=== PATIENT | female | born 1945 | race Caucasian/White ===

== ENCOUNTER → 2017-12-08 | Outpatient (CLI) | payer MEDICARE, BC ==
--- NOTE | 2017-12-08 12:41 | ECHOF ---
Referral Reason:I10 Hypertension / R06.02 Shortness of Breath MEASUREMENTS -------- HEIGHT: 160.0 cm WEIGHT: 60.8 kg BP: 160/73 RVIDd: 2.5 cm (< 3.3) IVSd: 0.9 cm (0.6 - 1.1) LVIDd: 3.7 cm (3.9 - 5.3) LVPWd: 0.9 cm (0.6 - 1.1) IVSs: 1.5 cm LVIDs: 2.6 cm LVPWs: 1.2 cm LA Diam: 2.4 cm (2.7 - 3.8) LAESV Index (A-L): 12.02 ml/m Ao Diam: 2.7 cm (2.0 - 3.7) AV Cusp: 1.9 cm (1.5 - 2.6) MV EXCURSION: 16.074 mm (> 18.000) MV EF SLOPE: 82 mm/s (70 - 150) EPSS: 0.4 cm MV E Rolo: 0.78 m/s MV DecT: 226 ms MV A Rolo: 0.97 m/s MV E/A Ratio: 0.81 RAP: 5.00 mmHg RVSP: 27.65 mmHg FINDINGS -------- Sinus rhythm. This was a technically adequate study. The left ventricular size is normal. Left ventricular wall thickness is normal. Overall left vent ricular systolic function is normal with, an EF between 55 - 60 %. The right ventricle is normal in size. Normal LA size by volume 22+/-6 ml/m2. The right atrium is normal in size. There is mild aortic valve sclerosis. Trace to mild aortic regurgitation. Mild mitral annular calcification present. Mild mitral regurgitation is present. Mild tricuspid regurgitation present. Right ventricular systolic pressure is normal at < 35 mmHg. There is no pulmonic regurgitation present. The aortic root size is normal. Normal inferior vena cava with normal inspiratory collapse consistent with estimated right atrial pre ssure of 5 mmHg. There is no pericardial effusion. CONCLUSIONS -------- 1. Sinus rhythm. 2. This was a technically adequate study. 3. The left ventricular size is normal. 4. Left ventricular wall thickness is normal. 5. Overall left ventricular systolic function is normal with, an EF between 55 - 60 %. 6. The right ventricle is normal in size. 7. Normal LA size by volume 22+/-6 ml/m2. 8. The right atrium is normal in size. 9. There is mild aortic valve sclerosis. 10. Trace to mild aortic regurgitation. 11. Mild mitral annular calcification present. 12. Mild mitral regurgitation is present. 13. Mild tricuspid regurgitation present. 14. Right ventricular systolic pressure is normal at < 35 mmHg. 15. There is no pulmonic regurgitation present. 16. The aortic root size is normal. 17. Normal inferior vena cava with normal inspiratory collapse consistent with estimated right atrial pressure of 5 mmHg. 18. There is no pericardial effusion. [place]ARLAND MACHINE OPERATOR: Sarah Perdomo RDCS
== END ==
LOC: RADECHMAIN 11:28
PROVIDERS: ATTEND Internal Medicine
DX: I08.3 Combined rheumatic disorders of mitral, aortic and tricuspid valves (principal); E11.9 Type 2 diabetes mellitus without complications; I10 Essential (primary) hypertension; R06.01 Orthopnea
CPT/HCPCS: 93306

== ENCOUNTER → 2020-02-06 | Outpatient (CLI) | payer MEDICARE, BC | END | disposition home or self-care (01) | LOC: LABWHC1 11:30 | PROVIDERS: ATTEND Internal Medicine | DX: Z03.818 Encounter for observation for suspected exposure to other biological agents ruled out (principal) | CPT/HCPCS: U0003; C9803 ==

== ENCOUNTER → 2020-08-06 | Outpatient (CLI) | payer MEDICARE, BC ==
--- NOTE | 2020-08-06 11:54 | XR ---
EXAMINATION TYPE: XR cervical spine w flex/ext DATE OF EXAM: 08/06/2020 COMPARISON: None HISTORY: Neck pain TECHNIQUE: 5 view cervical spine supplemented with flexion and extension views FINDINGS: Facet changes are evident. There is narrowing of right foramen greater in the lower cervica l spine. Mild narrowing of left foramen are present. Prevertebral space is normal. There is loss of disc height at C6-7. Remaining disc height and the alexa tebral body heights are preserved. Posterior spinal lamellar line is intact. No significant change be tween neutral and extension is evident. There appears to be some normal motion with flexion. The odon toid is limited with overlying occiput. IMPRESSION: 1. Degenerative disc changes C6-7. 2. Limited extension view. 3. Foraminal narrowing diffusely greater on the right.
== END | disposition home or self-care (01) ==
LOC: RADXRMAIN 09:46
PROVIDERS: ATTEND Internal Medicine
DX: M47.812 Spondylosis without myelopathy or radiculopathy, cervical region (principal); M99.71 Connective tissue and disc stenosis of intervertebral foramina of cervical region
CPT/HCPCS: 72052

== ENCOUNTER → 2020-08-11 | Outpatient (CLI) | payer MEDICARE, BC ==
--- NOTE | 2020-08-11 12:41 | MR ---
EXAMINATION TYPE: MR cervical spine wo con DATE OF EXAM: 08/11/2020 COMPARISON: None HISTORY: Neck pain CONTRAST: Performed utilizing 0 mL intravenous Gadavist gadolinium contrast. TECHNIQUE: Multiplanar multiecho imaging on a 3.0 Deja magnet is performed through the cervical spin e. FINDINGS: The craniovertebral junction is normal. Vertebral body alignment is normal. Disc desicca tion is within the cervical spine. Her at T1-T2: There is right paracentral disc bulging. No cord con tact or spinal canal stenosis is present. C7-T1: No focal disc herniation or significant disc bulge is evident. No spinal canal stenosis or n eural foraminal stenosis is present. C6-7: Disc bulge with anterior thecal sac flattening. No cord contact or spinal canal stenosis presen t. Neural foramen are patent.. C5-6: Mild disc bulging is anterior thecal sac flattening. No spinal canal stenosis or neural foramin al stenosis present. No cord contact is present.. C4-5: No focal disc herniation or significant disc bulge is evident. No spinal canal stenosis or humberto ral foraminal stenosis is present. C3-4: No focal disc herniation or significant disc bulge is evident. No spinal canal stenosis or humberto ral foraminal stenosis is present. C2-3: No focal disc herniation or significant disc bulge is evident. No spinal canal stenosis or humberto ral foraminal stenosis is present. IMPRESSIONS: 1. Mild disc bulging C5-6 C6-7 with anterior thecal sac flattening. No cord contact or spinal canal s tenosis is present.
== END | disposition home or self-care (01) ==
LOC: RADMRIMAIN 11:10
PROVIDERS: ATTEND Internal Medicine
DX: M50.022 Cervical disc disorder at C5-C6 level with myelopathy (principal)
CPT/HCPCS: 72141

== ENCOUNTER 2020-10-15 19:44 | Emergency (ER) | payer MEDICARE, BC ==
[2020-10-15 19:57] VITALS: TEMP 98.1
[2020-10-15] MEDS ORDERED: hydrALAZINE HCL 20 MG/ML 1 ML VIAL IVP STA (20:26)
[2020-10-15] MEDS ORDERED: SODIUM CHLORIDE 0.9% 500 ML 500 ML IV ONE (20:26)
--- NOTE | 2020-10-15 20:57 | ED ---
General Adult HPI - General Chief complaint: Recheck/Abnormal Lab/Rx Stated complaint: hypertension Time Seen by Provider: 10/15/20 20:06 Source: patient, family, RN notes reviewed, old records reviewed Mode of arrival: ambulatory - History of Present Illness Initial comments: 75-year-old female with history of hypertension presents with elevated blood pressure throughout the day today. Patient does take losartan, metoprolol, and clonidine 0.1 mg 4 times daily. She had taken an additional dose of clonidine in hopes of low on her blood pressure. Blood pressure readings at home were elevated. She had a vague occipital headache and chest discomfort. No central chest pain. No history of CAD. No focal numbness or weakness. No abdominal pain. No nausea vomiting. She's been eating and drinking well. No fevers. - Related Data Home Medications Medication Instructions Recorded Confirmed Dapagliflozin Propanediol [Farxiga] 10 mg PO DAILY 10/15/20 10/15/20 Ezetimibe [Zetia] 10 mg PO DAILY 10/15/20 10/15/20 Gabapentin [Neurontin] 100 mg PO TID 10/15/20 10/15/20 Losartan Potassium 100 mg PO DAILY 10/15/20 10/15/20 Metoprolol Succinate [Toprol XL] 100 mg PO DAILY 10/15/20 10/15/20 Pioglitazone HCl 30 mg PO DAILY 10/15/20 10/15/20 Simvastatin [Zocor] 20 mg PO HS 10/15/20 10/15/20 cloNIDine HCL [Catapres] 0.1 mg PO QID 10/15/20 10/15/20 metFORMIN HCL [Glucophage] 1,000 mg PO BID 10/15/20 10/15/20 Previous Rx's Medication Instructions Recorded amLODIPine [Norvasc] 5 mg PO DAILY #30 tab 10/15/20 Allergies Allergy/AdvReac Type Severity Reaction Status Date / Time sulfamethoxazole Allergy Unknown Verified 10/15/20 20:53 [From Bactrim] trimethoprim [From Bactrim] Allergy Unknown Verified 10/15/20 20:53 codeine AdvReac Hallucinati Verified 10/15/20 20:53 ons Review of Systems ROS Statement: Those systems with pertinent positive or pertinent negative responses have been documented in the HPI. ROS Other: All systems not noted in ROS Statement are negative. Past Medical History Past Medical History: Diabetes Mellitus, Hypertension, Osteoarthritis (OA) History of Any Multi-Drug Resistant Organisms: None Reported Past Psychological History: No Psychological Hx Reported Smoking Status: Never smoker Past Alcohol Use History: Rare Past Drug Use History: None Reported General Exam General appearance: alert, in no apparent distress Head exam: Present: atraumatic, normocephalic Eye exam: Present: normal appearance, PERRL ENT exam: Present: mucous membranes dry Neck exam: Present: normal inspection. Absent: tenderness, meningismus Respiratory exam: Present: normal lung sounds bilaterally. Absent: respiratory distress, wheezes, rales Cardiovascular Exam: Present: regular rate, normal rhythm GI/Abdominal exam: Present: soft. Absent: distended, tenderness, guarding Extremities exam: Present: normal inspection, normal capillary refill. Absent: pedal edema, calf tenderness Neurological exam: Present: alert, oriented X3, CN II-XII intact. Absent: motor sensory deficit Psychiatric exam: Present: normal affect, normal mood Skin exam: Present: warm, dry, intact. Absent: cyanosis, diaphoretic Course Vital Signs 10/15/20 10/15/20 10/15/20 19:53 19:57 20:57 Temperature 98.1 F Pulse Rate 77 74 77 Respiratory 19 16 16 Rate Blood Pressure 198/85 203/97 197/91 O2 Sat by Pulse 99 99 99 Oximetry 10/15/20 21:57 Temperature Pulse Rate 81 Respiratory 16 Rate Blood Pressure 167/75 O2 Sat by Pulse 100 Oximetry EKG Findings - EKG Comments: EKG Findings:: EKG: Normal sinus rhythm, rate 77, LA interval 160, QRS duration 72, QTC 416, no ST segment elevation Medical Decision Making - Medical Decision Making 75 female presented with elevated blood pressure. She did have some minor vague complaints workup was initiated, EKG sinus rhythm, chest x-ray negative for acute cardiopulmonary disease. Head CT negative for intracranial hemorrhage or mass effect. Normal CBC, normal CMP with exception of a mildly elevated serum creatinine which is at baseline for this patient. Negative troponin. Did discuss case with Dr. Shea who is the patient's primary care physician. Recommends Norvasc 5 mg this prescription will be given to the patient. She is feeling good and eager for discharge. - Lab Data Result diagrams: 10/15/20 20:51 10/15/20 20:51 Lab Results 10/15/20 10/15/20 10/15/20 Range/Units 20:51 20:51 20:51 WBC 6.8 (3.8-10.6) k/uL RBC 3.88 (3.80-5.40) m/uL Hgb 10.7 L (11.4-16.0) gm/dL Hct 33.2 L (34.0-46.0) % MCV 85.4 (80.0-100.0) fL MCH 27.5 (25.0-35.0) pg MCHC 32.2 (31.0-37.0) g/dL RDW 15.7 H (11.5-15.5) % Plt Count 342 (150-450) k/uL MPV 7.4 Neutrophils % 62 % Lymphocytes % 26 % Monocytes % 7 % Eosinophils % 2 % Basophils % 1 % Neutrophils # 4.2 (1.3-7.7) k/uL Lymphocytes # 1.8 (1.0-4.8) k/uL Monocytes # 0.5 (0-1.0) k/uL Eosinophils # 0.1 (0-0.7) k/uL Basophils # 0.0 (0-0.2) k/uL PT 10.3 (9.0-12.0) sec INR 1.0 (<1.2) APTT 21.3 L (22.0-30.0) sec Sodium 136 L (137-145) mmol/L Potassium 4.3 (3.5-5.1) mmol/L Chloride 99 (98-107) mmol/L Carbon Dioxide 25 (22-30) mmol/L Anion Gap 12 mmol/L BUN 22 H (7-17) mg/dL Creatinine 1.26 H (0.52-1.04) mg/dL Est GFR (CKD-EPI)AfAm 47 (>60 ml/min/1.73 sqM) Est GFR (CKD-EPI)NonAf 41 (>60 ml/min/1.73 sqM) Glucose 135 H (74-99) mg/dL Calcium 10.0 (8.4-10.2) mg/dL Magnesium 1.7 (1.6-2.3) mg/dL Total Bilirubin 0.2 (0.2-1.3) mg/dL AST 27 (14-36) U/L ALT 14 (4-34) U/L Alkaline Phosphatase 67 (38-126) U/L Troponin I (0.000-0.034) ng/mL Total Protein 6.9 (6.3-8.2) g/dL Albumin 4.5 (3.5-5.0) g/dL 10/15/20 Range/Units 20:51 WBC (3.8-10.6) k/uL RBC (3.80-5.40) m/uL Hgb (11.4-16.0) gm/dL Hct (34.0-46.0) % MCV (80.0-100.0) fL MCH (25.0-35.0) pg MCHC (31.0-37.0) g/dL RDW (11.5-15.5) % Plt Count (150-450) k/uL MPV Neutrophils % % Lymphocytes % % Monocytes % % Eosinophils % % Basophils % % Neutrophils # (1.3-7.7) k/uL Lymphocytes # (1.0-4.8) k/uL Monocytes # (0-1.0) k/uL Eosinophils # (0-0.7) k/uL Basophils # (0-0.2) k/uL PT (9.0-12.0) sec INR (<1.2) APTT (22.0-30.0) sec Sodium (137-145) mmol/L Potassium (3.5-5.1) mmol/L Chloride (98-107) mmol/L Carbon Dioxide (22-30) mmol/L Anion Gap mmol/L BUN (7-17) mg/dL Creatinine (0.52-1.04) mg/dL Est GFR (CKD-EPI)AfAm (>60 ml/min/1.73 sqM) Est GFR (CKD-EPI)NonAf (>60 ml/min/1.73 sqM) Glucose (74-99) mg/dL Calcium (8.4-10.2) mg/dL Magnesium (1.6-2.3) mg/dL Total Bilirubin (0.2-1.3) mg/dL AST (14-36) U/L ALT (4-34) U/L Alkaline Phosphatase (38-126) U/L Troponin I <0.012 (0.000-0.034) ng/mL Total Protein (6.3-8.2) g/dL Albumin (3.5-5.0) g/dL Disposition Clinical Impression: Hypertension Disposition: HOME SELF-CARE Condition: Good Instructions (If sedation given, give patient instructions): Chronic Hypertension (ED) Prescriptions: amLODIPine [Norvasc] 5 mg PO DAILY #30 tab Is patient prescribed a controlled substance at d/c from ED?: No Referrals: Niyah Shea MD [Primary Care Provider] - 1-2 days Time of Disposition: 22:35
[2020-10-15 21:06] LABS: HCT 33.2 % (34.0-46.0); HGB 10.7 gm/dL (11.4-16.0); MCH 27.5 pg (25.0-35.0); MCHC 32.2 g/dL (31.0-37.0); MCV 85.4 fL (80.0-100.0); RBC 3.88 m/uL (3.80-5.40); RDW 15.7 % (11.5-15.5); WBC 6.8 k/uL (3.8-10.6)
[2020-10-15 21:07] LABS: Basophils % (A) 1 %; Eosinophils # (A) 0.1 k/uL (0-0.7); Eosinophils % (A) 2 %; Lymphocytes # (A) 1.8 k/uL (1.0-4.8); Lymphocytes % (A) 26 %; Mean Platelet Volume 7.4; Monocytes # (A) 0.5 k/uL (0-1.0); Monocytes % (A) 7 %; Neutrophils # (A) 4.2 k/uL (1.3-7.7); Neutrophils % (A) 62 %; Platelet Count 342 k/uL (150-450)
[2020-10-15] MEDS ORDERED: LORazepam 2 MG/ML INJ IV STA (21:17)
[2020-10-15 21:26] LABS: Partial Thromboplastin Time 21.3 sec (22.0-30.0); Prothrombin Time 10.3 sec (9.0-12.0)
[2020-10-15 21:50] LABS: Albumin 4.5 g/dL (3.5-5.0); Magnesium 1.7 mg/dL (1.6-2.3); Potassium 4.3 mmol/L (3.5-5.1); Total Bilirubin 0.2 mg/dL (0.2-1.3); Total Protein 6.9 g/dL (6.3-8.2)
--- NOTE | 2020-10-15 22:10 | XR ---
EXAMINATION TYPE: XR chest 2V DATE OF EXAM: 10/15/2020 COMPARISON: 02/14/2013 HISTORY: Chest pain TECHNIQUE: FINDINGS: There is no heart failure nor confluent pneumonic infiltrate. Costophrenic angles are clear . There are chest leads. There are no hilar masses. There is mild spurring in the thoracic spine. IMPRESSION: No active cardiopulmonary disease. There is clearing of the left lower lobe pneumonia com pared to old exam. Minimal pulmonary fibrotic changes noted.
--- NOTE | 2020-10-15 22:11 | CT ---
EXAMINATION TYPE: CT brain wo con DATE OF EXAM: 10/15/2020 COMPARISON: None HISTORY: Hypertension and headache. CT DLP: 1188.4 mGycm Automated exposure control for dose reduction was used. There is cerebral cortical atrophy. There is no mass effect nor midline shift. There is no sign of in tracranial hemorrhage. Calvarium is intact. There is normal aeration of the mastoid sinuses. Skull ba se is intact. IMPRESSION: No acute abnormality. Cerebral atrophy.
[2020-10-15 22:23] VITALS: RESP 16
[2020-10-15 22:24] VITALS: BP 167/75; PULSE 81
== END 2020-10-15 22:49 | disposition home or self-care (01) ==
LOC: EC 19:44
DX: I10 Essential (primary) hypertension (principal); E11.9 Type 2 diabetes mellitus without complications; Z79.84 Long term (current) use of oral hypoglycemic drugs; Z79.899 Other long term (current) drug therapy
CPT/HCPCS: 36415; 80053; 83735; 84484; 85025; 85610; 85730; 71046; 70450; 99285; 96374; 96375; 96361; J2060; J0360

== ENCOUNTER → 2020-10-27 | Outpatient (CLI) | payer MEDICARE, BC ==
--- NOTE | 2020-10-27 15:37 | BD ---
EXAMINATION TYPE: Axial Bone Density DATE OF EXAM: 10/27/2020 COMPARISON: NONE CLINICAL HISTORY: Height: 5 FT 3 IN Weight: 122 FRAX RISK QUESTIONS: Alcohol (3 or more units per day): NO Family History (Parent hip fracture): NO Glucocorticoids (More than 3mos): NO (Ex: prednisone, prednisolone, methylprednisolone, dexamethasone, and hydrocortisone). History of Fracture in Adulthood: NO Secondary Osteoporosis: 1. Type 1 Diabetes: NO 2. Hyperthyroidism: NO 3. Menopause before 45: NO 4. Malnutrition: NO 5. Chronic liver disease: NO Rheumatoid Arthritis: YES Current Tobacco Use: NO RISK FACTORS HISTORY OF: Surgery to Spine/Hip(right/left)/Wrist (right/left): NO Family History of Osteoporosis: NO Active: NO Diet low in dairy products/other sources of calcium: NO Postmenopausal woman: UNSURE Take estrogen and/or progesterone medications: VERY SHORT TIME Lost more than 2 inches in height since high school: NO Frequent falls: USES CANE AT HOME MEDICATIONS: Additional Medications: CLONIDINE, GABAPENTIN, METFORMIN, LOSARTAN, PIOGLITAZONE, FAXIGA ,EZETIMIBE,M ETOPROLOL, SIMVASTATIN, OMEPRAZOLE, MAGNESIUM, POTASSIUM, AMLODIPINE, MIRTAZAPINE , Additional History: EXAM MEASUREMENTS: Bone mineral densitometry was performed using the Zuki System. Bone mineral density as measured about the Lumbar spine is: ----- L1-L4(G/cm2): 1.022 T Score Values are as follows: ----- L2: -1.4 ----- L3: -0.7 ----- L4: -1.9 ----- L1-L4: -1.3 Bone mineral density has: INCREASED 3.6 % since study of: 2003 Bone mineral density about the R hip (g/cm2): 0.763 Bone mineral density about the L hip (g/cm2): 0.779 T Score values are as follows: -----R Neck: -2.0 -----L Neck: -1.9 -----R Total: -1.5 -----L Total: -1.6 Bone mineral density has: DECREASED -11.2 % since study of: 2003 IMPRESSION: Osteopenia NOTE: T-SCORE=SD OF THE YOUNG ADULT MEAN.
--- NOTE | 2020-10-28 13:57 | MM ---
Reason for exam: screening (asymptomatic). Last mammogram was performed 5 years and 8 months ago. History: Patient is postmenopausal and has history of endometrial cancer at age 60. Family history of premenopausal breast cancer in mother at age 50. Took hormonal contraceptives for 2 years beginning at age 18. Physical Findings: A clinical breast exam by your physician is recommended on an annual basis and results should be correlated with mammographic findings. MG 3D Screening Mammo W/Cad Bilateral CC and MLO view(s) were taken. Prior study comparison: March 12, 2015, bilateral MG 3d diag mammo w/cad FLAQUITA. The breast tissue is heterogeneously dense. This may lower the sensitivity of mammography. There are benign appearing diffuse vascular calcifications bilaterally. No significant changes when compared with prior studies. ASSESSMENT: Benign, BI-RAD 2 RECOMMENDATION: Routine screening mammogram of both breasts in 1 year.
== END | disposition home or self-care (01) ==
LOC: RADMAMWWP 11:57
PROVIDERS: ATTEND Internal Medicine
DX: Z12.31 Encounter for screening mammogram for malignant neoplasm of breast (principal); Z13.820 Encounter for screening for osteoporosis; M85.89 Other specified disorders of bone density and structure, multiple sites; Z78.0 Asymptomatic menopausal state; Z80.3 Family history of malignant neoplasm of breast
CPT/HCPCS: 77063; 77067; 77080

== ENCOUNTER → 2020-11-03 | Outpatient (CLI) | payer MEDICARE, BC | END | disposition home or self-care (01) | LOC: RADNMMAIN 08:07 | PROVIDERS: ATTEND Internal Medicine | DX: Z53.9 Procedure and treatment not carried out, unspecified reason (principal) ==

== ENCOUNTER → 2021-01-15 | Outpatient (CLI) | payer MEDICARE, BC ==
[~2021-01-15] MED LIST: REGADENOSON 0.4 MG/5 ML SYRINGE IV PRN
--- NOTE | 2021-01-15 12:42 | P.STRESS ---
- Stress Test Note Stress Test Results/Findings: Exam Performed: NM stress lexiscan cardiolite Exam Date: 01/15/21 Reason for Exam: CHEST PAIN Height: 5 ft 2 in Weight: 54.5 kg Protocol: LEXISCAN Stage: NA Duration of Exercise: 5 MINUTES Resting Heart Rate: 66 Resting Blood Pressure: 131/57 Maximum Achieved Heart Rate: 90 Maximum Achieved Blood Pressure: 163/61 85% PMHR: 121 100% PMHR: 142 METS: NA Technologist Comment: Stress Test Results/Findings: Baseline heart rate 66 beats a minute, Baseline blood pressure 131/57 mmHg Baseline 12-lead EKG shows sinus rhythm with a nonspecific ST segment abnormalities in the lateral precordial leads with RV PVCs Patient received Lexiscan infusion per protocol No symptoms No ECG abnormalities noted PVCs continued throughout the infusion. Nuclear portion will be reported separately
--- NOTE | 2021-01-15 14:22 | NM ---
EXAMINATION TYPE: NM stress lexiscan cardiolite DATE OF EXAM: 01/15/2021 COMPARISON: NONE HISTORY: R00.1 bradycardia TECHNIQUE: After the intravenous administration of 9 mCi Tc 99m Sestamibi - Cardiolite resting SPECT images acquired 45 minutes post injection. The patient received 0.4mg Lexiscan, 25 mCi Tc 99m Sestamibi - Stress images obtained 30 minutes post injection FINDINGS: Review of stress and rest SPECT images demonstrates no distinct perfusion abnormality. Gated analysi s shows normal wall motion with an estimated left ventricular ejection fraction of 92 %. IMPRESSION: No scintigraphic evidence for reversible ischemia.
== END | disposition home or self-care (01) ==
LOC: RADNMMAIN 08:48
PROVIDERS: ATTEND Internal Medicine
DX: R00.1 Bradycardia, unspecified (principal)
CPT/HCPCS: 93017; 78452; A9500; J2785

== ENCOUNTER → 2021-07-13 | Outpatient (CLI) | payer MEDICARE, BC ==
[2021-07-13 17:34] LABS: INR 0.9 (<1.2); Partial Thromboplastin Time 23.8 sec (22.0-30.0); Prothrombin Time 10.1 sec (9.0-12.0)
[2021-07-13 18:29] LABS: Appearance,Urine Clear (Clear); Bilirubin,Urine Negative (Negative); Blood,Urine Negative (Negative); Color,Urine Light Yellow; Glucose,Urine (UA) 3+ (Negative); Ketones,Urine Negative (Negative); Leukocyte Esterase,Urine Negative (Negative); Nitrite,Urine Negative (Negative); PH, Urine 6.5 (5.0-8.0); Protein,Urine Negative (Negative); Specific Gravity,Urine 1.005 (1.001-1.035); Urobilinogen,Urine <2.0 mg/dL (<2.0)
[2021-07-13 23:40] LABS: African American GFR (CKD) 38.3 (60.0-200.0); Albumin 4.6 g/dL (3.8-4.9); Albumin/Globulin Ratio 1.92 (1.60-3.17); Anion Gap 14.3 mmol/L (10.00-18.00); BUN/Creat Ratio 20.87 Ratio (12.00-20.00); Blood Urea Nitrogen 31.3 mg/dL (9.0-27.0); Calcium 9.9 mg/dL (8.7-10.3); Carbon Dioxide 23.7 mmol/L (20.0-27.5); Globulin 2.4 g/dL (1.6-3.3); Potassium 4.5 mmol/L (3.5-5.5); Total Bilirubin 0.2 mg/dL (0.30-1.20)
[2021-07-14 00:02] LABS: HCT 35.5 % (37.2-46.3); HGB 11.1 g/dL (12.0-15.0); MCH 26.7 pg (27.0-32.0); MCHC 31.3 g/dL (32.0-37.0); MCV 85.3 fL (80.0-97.0); Mean Platelet Volume 11.5 fL (9.5-12.2); NRBC Per 100 WBC 0 /100 WBCS (0.0-0.0); Platelet Count 336 X 10*3/uL (140-440); RBC 4.16 X 10*6/uL (4.10-5.20); RDW 19.2 % (11.5-14.5); WBC 5.39 X 10*3/uL (4.50-10.00)
== END | disposition home or self-care (01) ==
LOC: LABWHC1 16:18
PROVIDERS: ATTEND Orthopaedic Surgery
DX: Z01.812 Encounter for preprocedural laboratory examination (principal); M16.12 Unilateral primary osteoarthritis, left hip
CPT/HCPCS: 36415; 80053; 81003; 85027; 85610; 85730; 87070

== ENCOUNTER 2021-07-27 12:34 | Day surgery (SDC) | payer MEDICARE, BC ==
[2021-07-23 15:01] VITALS: BMI 23.9
[~2021-07-27 12:34] MED LIST changes: +ACETAMINOPHEN TAB 500 MG TAB PO PRN; +GABAPENTIN 300 MG CAP PO PRN; +HYDROcodone/APAP 7.5-325MG 1 EACH TAB PO PRN; +HYDROmorphone 0.5 MG/0.5 ML SYRINGE IVP PRN; +LIDOCAINE 1% (10MG/ML) FOR IV START INTRADERMA PRN; +MAGNESIUM HYDROXIDE 2,400 MG/10 ML CUP PO PRN; +MELOXICAM 7.5 MG TAB PO PRN; +NALOXONE 0.4 MG/ML 1 ML VIAL IV PRN; +ONDANSETRON 4 MG/2 ML VIAL IVP ONE; +ONDANSETRON 4 MG/2 ML VIAL IVP PRN; -REGADENOSON 0.4 MG/5 ML SYRINGE IV PRN; +TRANEXAMIC ACID IN NACL,ISO-OS 1,000 MG in SALINE 1 100ML.BAG IVPB PRN
[2021-07-27] MEDS: LACTATED RINGERS 1,000 ML IV SCH (13:08)
[2021-07-27 13:22] LABS: Glucose,Whole Blood 94 mg/dL (75-99)
[2021-07-27] MEDS ORDERED: DEXAMETHASONE SOD PHOSPHATE 4 MG/ML 1 ML VIAL IVP ONE (13:29)
[2021-07-27] MEDS ORDERED: TRANEXAMIC ACID IN NACL,ISO-OS 1,000 MG/100 ML BAG ONE (14:12)
[2021-07-27] MEDS ORDERED: fentaNYL (PF) 50 MCG/ML 2 ML AMP ONE (14:12)
[2021-07-27] MEDS ORDERED: MIDAZOLAM 2 MG/2 ML VIAL ONE (14:12)
[2021-07-27] MEDS ORDERED: PROPOFOL 10 MG/ML 20 ML VIAL IV ONE (14:12)
[2021-07-27] MEDS ORDERED: PHENYLEPHRINE-0.9% NACL SYG 1,000 MCG/10 ML SYRINGE ONE (14:12)
[2021-07-27] MEDS ORDERED: ROPIVACAINE 5 MG/ML 30 ML VIAL MISCELLANE ONE (14:23)
[2021-07-27] MEDS ORDERED: ceFAZolin 1,000 MG in SODIUM CHLORIDE 0.9% 1,000 ML IRRIGATION ONE (14:23)
[2021-07-27] MEDS ORDERED: BUPIVACAINE (PF) 0.25% 30 ML VIAL SQ ONE (14:57)
--- NOTE | 2021-07-27 15:38 | P.OP ---
Date of Procedure: 07/27/21 Preoperative Diagnosis: Severe osteoarthritis left hip Postoperative Diagnosis: Severe osteoarthritis left hip Procedure(s) Performed: Left total hip arthroplasty with a direct anterior approach Implants: [employer] Polarstem standard size 1 [employer] R3, 3 hole hemispherical acetabular shell, 50 mm [employer] Reflection 6.5 mm cancellus screw, 20 mm 2 [employer] R3, XLPE 20 acetabular liner [employer] Oxinium femoral head 32 m, +4 All components were press-fit. The articulation is Oxinium on polyethylene. Anesthesia: spinal Surgeon: Andre Lerner Alumni Relations Officer #1: Tiff Hernandez Estimated Blood Loss (ml): 250 Pathology: other (Femoral head) Condition: stable Disposition: PACU Indications for Procedure: After failure of conservative treatment we discussed the surgical and nonsurgical treatment options at length. Patient wishes to proceed with a total hip arthroplasty with a direct anterior approach. Complications specific to this procedure were discussed at length, including but not limited to infection, leg length discrepancy, dislocation, nerve injury, and fracture. Covid-19 was also discussed at length with the patient, and they are aware of the current policies and procedures. The patient was given the option of delaying surgery, but they elect to proceed knowing these risks. Patient is aware of all these complications and informed consent was obtained Operative Findings: The operative findings are consistent with severe osteoarthritis of the left hip Description of Procedure: Patient was seen and evaluated in the preoperative area and the consent was reviewed. The operative site was marked with a skin marker. The patient was then brought to the operating room and given preoperative antibiotics in travenously. 1 g of Tranexamic acid was also given intravenously. A spinal anesthetic was administered by the anesthesia department. The patient was then placed on the [place] table with the bony prominences well-padded. The hip area was then prepped with a ChloraPrep solution and draped in the usual sterile fashion. A universal timeout was then performed, which confirmed the patient's name, galarza rgical site, ALLERGIES, and procedure being performed on the consent. Next the incision site was located at 1 cm distal and 2 cm lateral to the anterior superior iliac spine. The skin and subcutaneous tissues were sharply incised. Incision was carefully dissected down to the fascia overlying the tensor fascia mercedes muscle. This fascia was then incised in line with the incision. Care was taken to stay laterally in order to avoid injuring the lateral femoral cutaneous nerve. Next, using blunt finger dissection, the tensor fascia mercedes muscle was dissected off its investing fascia. The muscle was then carefully retracted laterally with a cobra retractor over the lateral neck of the femur. Next, the circumflex vessels were identified and cauterized using the AquaMantis device. The anterior hip capsule was then exposed. The capsule was then opened and an inverted T fashion. Cobra retractors were then placed intracapsularly. The retractors were maintained intracapsular throughout the procedure. The proximal femur was then visualized. Fluoroscopic x-rays were then taken in order to evaluate the preoperative leg lengths. A small amount of traction was placed on the leg. The femoral neck was then osteotomized at the appropriate level above the lesser trochanter. A small wedge of bone was then removed from the remaining femoral head. Next, using a corkscrew the femoral head was removed from the acetabulum. On gross visual inspection, the femoral head had complete loss of articular cartilage and multiple periarticular osteophytes. The femoral head was then measured. Attention was then turned to the acetabulum. The acetabulum was exposed and any remaining labrum was excised. Sequential reaming of the acetabulum was performed using fluoroscopic guidance until there was a good bed of bleeding cancellus bone. When the appropriate size was reached, a trial was then placed. The position and fit of the trial was checked with fluoroscopy. The trial was then removed. Then, using fluoroscopic guidance, the final implant was impacted at 20 of anteversion and 40 of abduction, and fully seated in the acetabulum. 2 screws were then placed in the acetabulum. Again fluoroscopy was used to check position of the screws. Next, the liner was then impacted, with a 20 elevated liner located in the anterior superior quadrant. Component locking was confirmed. Attention was then directed to the femur. With the aid of the [place] table, the femur was externally rotated to approximately 130, extended, and adducted under the opposite leg. A side hook was then placed under the proximal femur, and the side hook elevator was used to elevate the proximal femur while releasing the capsule. Retractors were then placed. A capsular release was performed, as well as a release of the conjoined tendon, which afforded excellent visualization of the proximal femur. Next, a box osteotome was used to lateralize the proximal femur. A hand screen printer was then used to locate the femoral canal. Sequential broaching was then performed with appropriate size which afforded excellent fixation in the proximal femur. A trial was then placed with appropriate head and neck, and the hip was gently reduced with the aid of the [place] table. Fluoroscopy was then used to check position of the components, as well as to ensure equal leg lengths. The hip was then gently dislocated and the trials were then removed. Final implants were then impacted and the hip was again reduced. Final fluoroscopic x-rays confirmed that the components were in anatomic position, as well as equal leg lengths. The hip was also taken through range of motion, and found to be stable. The hip was then copiously irrigated with antibiotic solution with pulsatile lavage. The hip was then irrigated with Irrisept solution. The soft tissues were then injected with a ropivacaine solution. A second dose of 1 g of Tranexamic acid was also given intravenously. The fascia was then closed with 2-0 strata fix suture. The subcutaneous tissue was closed with 3-0 Vicryl. The subcuticular tissue was closed with 3-0 strata fix suture. The skin was then closed with Exofin skin glue. After the glue and dried, and Optifoam silver impregnated dressing was applied. The patient was then transferred to the recovery room in stable condition. The assistant portfolio manager MARLEEN Montanez was required due to the complexity of surgery, and the need for skilled ophthalmic medical assistant for positioning, draping, exposure, retraction, and closure of the wound.
--- NOTE | 2021-07-27 15:54 | XR ---
EXAMINATION TYPE: XR Hip Limited LT, FL guidance operating room DATE OF EXAM: 07/27/2021 CLINICAL HISTORY: Left hip pain and osteoarthritis. TECHNIQUE: Fluoroscopy. Intraoperative limited views left hip. COMPARISON: None. FINDINGS: Fluoroscopic guidance was provided during left hip replacement procedure performed by Dr. Lerner. A total of 52 seconds of fluoroscopic time was utilized during the procedure and 4 spot in traoperative images are acquired. Intraoperative images obtained show advanced degenerative change left hip joint with subsequent repla cement with metallic prosthesis. Metallic hardware is satisfactory in position on frontal intraoperat norman projection after replacement. IMPRESSION: As Above.
--- NOTE | 2021-07-27 16:45 | XR ---
EXAMINATION TYPE: XR Hip Limited LT DATE OF EXAM: 07/27/2021 COMPARISON: X-ray performed earlier same day INDICATION: Postoperative TECHNIQUE: One view of the left hip FINDINGS: Status post left total hip arthroplasty. No gross hardware complication with good alignment. Acute po stsurgical changes with surrounding soft tissue swelling and gas. IMPRESSION: As above.
[2021-07-27 16:53] LABS: Glucose,Whole Blood 102 mg/dL (75-99)
[2021-07-27] MEDS: SODIUM CHLORIDE 0.9% 1,000 ML IV SCH (17:44)
[2021-07-27] MEDS: GABAPENTIN 100 MG CAP PO SCH (19:56)
[2021-07-27] MEDS: ASPIRIN 81 MG PO SCH (19:56)
[2021-07-27] MEDS: CYCLOBENZAPRINE 5 MG TAB PO SCH (19:56)
[2021-07-27] MEDS: cloNIDine HCL 0.1 MG TAB PO SCH ×2 (19:57→23:03)
[2021-07-27] MEDS: HYDROcodone/APAP 7.5-325MG 1 EACH TAB PO PRN (19:57)
[2021-07-27 20:44] LABS: Glucose,Whole Blood 118 mg/dL (75-99)
[2021-07-27] MEDS ORDERED: MIRTAZAPINE 15 MG TAB PO SCH (21:00)
[2021-07-27] MEDS ORDERED: SENNOSIDES-DOCUSATE SODIUM 1 EACH TAB PO SCH (21:00)
[2021-07-28] MEDS: HYDROcodone/APAP 7.5-325MG 1 EACH TAB PO PRN ×2 (01:58→07:47)
[2021-07-28] MEDS: SODIUM CHLORIDE 0.9% 1,000 ML IV SCH (03:23)
[2021-07-28 06:47] LABS: Glucose,Whole Blood 151 mg/dL (75-99)
[2021-07-28] MEDS: LACTATED RINGERS 1,000 ML IV SCH (07:44)
[2021-07-28 07:46] VITALS: BP 147/69; PULSE 105; RESP 18; TEMP 98.1
[2021-07-28] MEDS: CYCLOBENZAPRINE 5 MG TAB PO SCH (07:46)
[2021-07-28] MEDS: ASPIRIN 81 MG PO SCH (07:47)
[2021-07-28] MEDS: cloNIDine HCL 0.1 MG TAB PO SCH (07:47)
[2021-07-28] MEDS: GABAPENTIN 100 MG CAP PO SCH (07:47)
--- NOTE | 2021-07-28 07:49 | P.DS ---
Providers Expected date of discharge: 07/28/21 Attending physician: Andre Lerner Consults: 07/27/21 10:50 Consult Physician Routine Consulting Provider: Niyah Shea Consult Reason/Comments: medical management Do you want consulting provider notified?: Yes Primary care physician: Niyah Shea - Discharge Diagnosis(es) (1) Primary localized osteoarthritis of left hip Current Visit: Yes Status: Acute (2) Status post total hip replacement, left Current Visit: Yes Status: Acute Hospital Course: This is a 76-year-old female with known history of degenerative arthritis of the left hip. The patient presents for evaluation. After discussion and con sideration patient elects to proceed with total hip arthroplasty with direct anterior approach. The patient is seen preoperatively by primary care physician and cleared for surgery. Patient is admitted to [facility] on 07/27/2021 for total hip arthroplasty with direct anterior approach. The procedure is performed without complication or sequelae. The patient is doing well postoperatively. Labs and vital signs are stable on day of discharge. On day of discharge patient's hip incision is healing well. There is minimal erythema. There is no drainage noted at this time. There is minimal soft tissue swelling to the hip and thigh. Patient has full foot and ankle motion without difficulty or pain. Neurovascular status to the lower extremity is intact. Patient is discharged to home in good condition. Please see med rec for accurate list of home medications. Plan - Discharge Summary Discharge Rx Participant: Yes New Discharge Prescriptions: New Aspirin [Adult Low Dose Aspirin EC] 81 mg PO BID 30 Days #60 tab HYDROcodone/APAP 7.5-325MG [[place] 7.5-325] 1 - 2 tab PO Q6H PRN #32 tab PRN Reason: Pain Sennosides [Senokot] 2 tab PO DAILY PRN #60 tablet PRN Reason: Constipation Ondansetron Odt [Zofran Odt] 1 tab PO Q8HR PRN #10 tab PRN Reason: Nausea No Action Losartan Potassium 100 mg PO DAILY Dapagliflozin Propanediol [Farxiga] 10 mg PO DAILY amLODIPine [Norvasc] 5 mg PO DAILY #30 tab Cyclobenzaprine [Flexeril] 5 mg PO BID Alendronate Sodium 70 mg PO WEEKLY Multivitamins, Thera [Multivitamin (formulary)] 1 tab PO DAILY Mirtazapine 7.5 mg PO HS Cannabidiol (Cbd) [Epidiolex] 1 dose PO HS PRN PRN Reason: Pain Pioglitazone HCl 30 mg PO DAILY Metoprolol Succinate [Toprol XL] 150 mg PO DAILY cloNIDine HCL [Catapres] 0.1 mg PO QID Gabapentin [Neurontin] 100 mg PO TID Ezetimibe [Zetia] 10 mg PO DAILY Simvastatin [Zocor] 10 mg PO DAILY Semaglutide [Rybelsus] 7 mg PO DAILY Zinc (Unknown Dose) 1 tab PO DAILY Vitamin D 3 (Unknown Dose) 1 cap PO DAILY Calcium (Unknown Dose) 1 tab PO DAILY Discharge Medication List Dapagliflozin Propanediol [Farxiga] 10 mg PO DAILY 10/15/20 [History] Ezetimibe [Zetia] 10 mg PO DAILY 10/15/20 [History] Gabapentin [Neurontin] 100 mg PO TID 10/15/20 [History] Losartan Potassium 100 mg PO DAILY 10/15/20 [History] Metoprolol Succinate [Toprol XL] 150 mg PO DAILY 10/15/20 [History] Pioglitazone HCl 30 mg PO DAILY 10/15/20 [History] Simvastatin [Zocor] 10 mg PO DAILY 10/15/20 [History] amLODIPine [Norvasc] 5 mg PO DAILY #30 tab 10/15/20 [Rx] cloNIDine HCL [Catapres] 0.1 mg PO QID 10/15/20 [History] Alendronate Sodium 70 mg PO WEEKLY 07/23/21 [History] Calcium (Unknown Dose) 1 tab PO DAILY 07/23/21 [History] Cannabidiol (Cbd) [Epidiolex] 1 dose PO HS PRN 07/23/21 [History] Cyclobenzaprine [Flexeril] 5 mg PO BID 07/23/21 [History] Mirtazapine 7.5 mg PO HS 07/23/21 [History] Multivitamins, Thera [Multivitamin (formulary)] 1 tab PO DAILY 07/23/21 [History] Semaglutide [Rybelsus] 7 mg PO DAILY 07/23/21 [History] Vitamin D 3 (Unknown Dose) 1 cap PO DAILY 07/23/21 [History] Zinc (Unknown Dose) 1 tab PO DAILY 07/23/21 [History] Aspirin [Adult Low Dose Aspirin EC] 81 mg PO BID 30 Days #60 tab 07/27/21 [Rx] HYDROcodone/APAP 7.5-325MG [[place] 7.5-325] 1 - 2 tab PO Q6H PRN #32 tab 07/27/21 [Rx] Ondansetron Odt [Zofran Odt] 1 tab PO Q8HR PRN #10 tab 07/27/21 [Rx] Sennosides [Senokot] 2 tab PO DAILY PRN #60 tablet 07/27/21 [Rx] Follow up Appointment(s)/Referral(s): Andre Lerner DO [Doctor of Osteopathic Medicine] - 2 Weeks Activity/Diet/Wound Care/Special Instructions: Weightbearing as tolerated with walker. Leave dressing intact. Dressing may be removed by home care nurse or by patient in 7 days. Then change dressing twice daily until follow up. May shower with initial dressing intact and after removal. If dressing become saturated, please remove. Please take aspirin 81mg twice daily for 30 days to prevent blood clots. Recommend use of compression stockings daily until follow up to help prevent swelling and blood clots. May remove at night before sleeping. Please follow-up with [facility] in 2 weeks and call with any questions or concerns, . Discharge Disposition: HOME WITH HOME HEALTH SERVICES
--- NOTE | 2021-07-28 08:25 | P.PN ---
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 Patient was brought in the hospital under the care of Dr. Andre Lerner status post left total hip arthroplasty with direct anterior approach, postop day 0. She was on simple mask for short period and now on room air pulse oxing 96%. She denies any lightheadedness or dizziness. Medication reconciliation reviewed. 07/28: Patient is up in the bathroom this morning and plan for physical therapy today. is at bedside. Pain is controlled. No nausea or vomiting. She denies having chest pain or shortness of breath, no lightheadedness or dizziness. Orthopedics has evaluated the patient this morning up repair for discharge home today. Medication reconciliation has been completed for home. REVIEW OF SYSTEMS: Constitutional: No documented fever, no chills, no night sweats. No weight change. No weakness, fatigue or lethargy. No daytime sleepiness. EENT: No headache. No blurred vision or double vision, no loss of vision. No loss of Hearing, no ringing in the ears, no dizziness. No nasal drainage or congestion. No epistaxis. No sore throat. Lungs: No shortness of breath, no cough, no sputum production. No wheezing. Reports dyspnea with activity. Cardiovascular: No chest pain, no lower extremity edema. No palpitations. No paroxysmal nocturnal dyspnea. No orthopnea. No lightheadedness or dizziness. No syncopal episodes. Abdominal: Denies abdominal pain. No nausea, vomiting. No diarrhea. No constipation. No bloody or tarry stools reports loss of appetite. Genitourinary: No dysuria, increased frequency, urgency. No urinary retention. Musculoskeletal: No myalgias. No muscle weakness, no gait dysfunction, no frequent falls. No back pain. No neck pain. Integumentary: No wounds, no lesions. No rash or pruritus. No unusual bruising. No change in hair or nails. Neurologic: No aphasia. No facial droop. No change in mentation. No head injury. No headache. No paralysis. No paresthesia. Psychiatric: No depression. No anxiety. No mood swings. Endocrine: No abnormal blood sugars. . PHYSICAL EXAMINATION: General: This is a 76-year-old female and appears to be comfortable, no acute distress noted. No respiratory distress. HEENT: Head is atraumatic, normocephalic, pupils were equal round reactive to light and recommendation, extraocular muscle movement were intact, sclera nonicteric, conjunctivae were pale, mucous membranes of the mouth are somewhat dry. Neck: Supple, no JVP, normal carotid upstroke bilaterally, no lymphadenopathy. Chest: Decreased breath sounds at the bases, few rhonchi, no extremity wheezes, no chest wall tenderness, no intercostal retractions. Heart: First heart sound is normal, second heart sounds normal, there is a 2/6 systolic ejection murmur at the left sternal border, no S3 or S4. Abdomen: Soft, nontender, nondistended, positive bowel sounds. Extremities: There is no edema no calf tenderness DP +[address] to the right hip. Neurologic examination: Patient is awake alert and oriented ?-3, cranial nerves II-12 appear grossly intact, muscle power were 5 out of 5 in upper extremities and 5 out of 5 in bilateral lower extremities, deep tendon reflexes normal bilaterally. ASSESSMENT AND PLAN: 1. Osteoarthritis status post left total hip arthroplasty, direct anterior approach, postop day 1. Patient has been admitted to the [facility] floor, continue current pain management with [place] 7.5 mg 1-2 tablets every 6 hours, aspirin 81 mg twice daily for DVT prophylaxis, continue patient on incentive spirometry to reduce incidence of atelectasis and hospital-acquired pneumonia. 2. Hypertension. Continue patient on amlodipine 5 mg daily, clonidine 0.1 mg 4 times daily, losartan 100 mg daily, Toprol-XL 150 mg daily. 3. Hyperlipidemia. Continue simvastatin 10 mg oral daily, ezetimibe 10 mg daily. 4. Diabetes mellitus type 2. Continue patient on Rybelsus 7 mg oral daily, Actos 30 mg oral daily, Farxiga 10 mg oral daily. 5. Gastroesophageal reflux disease. 6. Spondylosis of the lumbar spine with myelopathy. Continue gabapentin 100 mg 3 times daily, Flexeril 5 mg twice daily. 7. DVT prophylaxis. Aspirin 81 mg twice daily. Objective - Vital Signs Vital signs: Vital Signs Temp 98.1 F 07/28/21 07:19 Pulse 105 H 07/28/21 07:19 Resp 18 03/23/22 07:19 BP 147/69 07/28/21 07:19 Pulse Ox 93 L 07/28/21 07:19 Intake & Output 07/27/21 07/28/21 07/28/21 18:59 06:59 18:59 Intake Total 1001 Output Total 250 Balance 751 Weight 64 kg Intake: IV 1001 Output: Estimated Blood Loss 250 Other: Voiding Method Toilet # Voids 1 - Labs CBC & Chem 7: 07/28/21 06:07 Labs: Abnormal Lab Results - Last 24 Hours (Table) 07/27/21 07/27/21 07/28/21 Range/Units 16:50 20:41 06:44 POC Glucose (mg/dL) 102 H 118 H 151 H (75-99) mg/dL
[2021-07-28] MEDS ORDERED: amLODIPine 5 MG TAB PO SCH (09:00)
[2021-07-28] MEDS ORDERED: ATORVASTATIN 10 MG TAB PO SCH (09:00)
[2021-07-28] MEDS ORDERED: EZETIMIBE 10 MG TAB PO SCH (09:00)
[2021-07-28] MEDS ORDERED: LOSARTAN 50 MG TAB PO SCH (09:00)
[2021-07-28] MEDS ORDERED: CHOLECALCIFEROL 125 MCG (5000 IU) TABLET PO SCH (09:00)
[2021-07-28] MEDS ORDERED: METOPROLOL SUCCINATE (ER) 50 MG TAB.ER.24H PO SCH (09:00)
[2021-07-28] MEDS ORDERED: MULTIVITAMINS, THERA 1 EACH TAB PO SCH (09:00)
[2021-07-28] MEDS ORDERED: ZINC SULFATE 220 MG CAP PO SCH (09:00)
[2021-07-28 09:30] LABS: Basophils # (A) 0.01 X 10*3/uL (0.00-0.10); Basophils % (A) 0.1 %; Eosinophils # (A) 0 X 10*3/uL (0.04-0.35); Eosinophils % (A) 0 %; HCT 30.6 % (37.2-46.3); HGB 9.6 g/dL (12.0-15.0); Immature Grans, Automated 0.4 %; Lymphocytes # (A) 0.81 X 10*3/uL (0.90-5.00); Lymphocytes % (A) 7.2 %; MCH 27.2 pg (27.0-32.0); MCHC 31.4 g/dL (32.0-37.0); MCV 86.7 fL (80.0-97.0); Mean Platelet Volume 11.2 fL (9.5-12.2); Monocytes # (A) 1.19 X 10*3/uL (0.20-1.00); Monocytes % (A) 10.6 %; NRBC Per 100 WBC 0 /100 WBCS (0.0-0.0); Neutrophils # (A) 9.13 X 10*3/uL (1.80-7.70); Neutrophils % (A) 81.7 %; Platelet Count 296 X 10*3/uL (140-440); RBC 3.53 X 10*6/uL (4.10-5.20); WBC 11.18 X 10*3/uL (4.50-10.00)
--- NOTE | 2021-07-30 11:24 | P.CONS ---
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 Patient was brought in the hospital under the care of Dr. Andre Lerner status post left total hip arthroplasty with direct anterior approach, postop day 0. She was on simple mask for short period and now on room air pulse oxing 96%. She denies any lightheadedness or dizziness. Medication reconciliation reviewed. REVIEW OF SYSTEMS: Constitutional: No documented fever, no chills, no night sweats. No weight change. No weakness, fatigue or lethargy. No daytime sleepiness. EENT: No headache. No blurred vision or double vision, no loss of vision. No loss of Hearing, no ringing in the ears, no dizziness. No nasal drainage or congestion. No epistaxis. No sore throat. Lungs: No shortness of breath, no cough, no sputum production. No wheezing. Reports dyspnea with activity. Cardiovascular: No chest pain, no lower extremity edema. No palpitations. No paroxysmal nocturnal dyspnea. No orthopnea. No lightheadedness or dizziness. No syncopal episodes. Abdominal: Denies abdominal pain. No nausea, vomiting. No diarrhea. No constipation. No bloody or tarry stools reports loss of appetite. Genitourinary: No dysuria, increased frequency, urgency. No urinary retention. Musculoskeletal: No myalgias. No muscle weakness, no gait dysfunction, no frequent falls. No back pain. No neck pain. Integumentary: No wounds, no lesions. No rash or pruritus. No unusual bruising. No change in hair or nails. Neurologic: No aphasia. No facial droop. No change in mentation. No head injury. No headache. No paralysis. No paresthesia. Psychiatric: No depression. No anxiety. No mood swings. Endocrine: No abnormal blood sugars. No weight change. PAST MEDICAL HISTORY: Hypertension Hyperlipidemia Diabetes mellitus type 2 Gastroesophageal reflux disease Fibromyalgia Spondylosis of the lumbar spine with myelopathy PAST SURGICAL HISTORY: Tonsillectomy Bilateral inguinal hernia repair Appendectomy Colonoscopy 2016 Left total hip arthroplasty 07/27/2021 SOCIAL HISTORY: Patient is a nonsmoker, no alcohol abuse. She lives at home with her in their own home. FAMILY HISTORY: Father at age 87 from renal failure and diabetes. Mother at age 64 from breast cancer and colon cancer. Patient has one brother alive. Patient has 2 sons with no major medical problems. She has 2 daughters and one has history of hypertension and diabetes. Second daughter is healthy. PHYSICAL EXAMINATION: General: This is a 76-year-old female, resting in bed and appears to be comfortable, no acute distress noted. No respiratory distress. Patient has b een is at bedside HEENT: Head is atraumatic, normocephalic, pupils were equal round reactive to light and recommendation, extraocular muscle movement were intact, sclera nonicteric, conjunctivae were pale, mucous membranes of the mouth are somewhat dry. Neck: Supple, no JVP, normal carotid upstroke bilaterally, no lymphadenopathy. Chest: Decreased breath sounds at the bases, few rhonchi, no extremity wheezes, no chest wall tenderness, no intercostal retractions. Heart: First heart sound is normal, second heart sounds normal, there is a 2/6 systolic ejection murmur at the left sternal border, no S3 or S4. Abdomen: Soft, nontender, nondistended, positive bowel sounds. Extremities: There is no edema no calf tenderness DP +[address] to the right hip. Neurologic examination: Patient is awake alert and oriented ?-3, cranial nerves II-12 appear grossly intact, muscle power were 5 out of 5 in upper extremities and 5 out of 5 in bilateral lower extremities, deep tendon reflexes normal bilaterally. ASSESSMENT AND PLAN: 1. Osteoarthritis status post left total hip arthroplasty, direct anterior approach, postop day 0. [facility], continue current pain management with [place] 7.5 mg 1-2 tablets every 6 hours, aspirin 81 mg twice daily for DVT prophylaxis, continue patient on incentive spirometry to reduce incidence of atelectasis and hospital-acquired pneumonia. 2. Hypertension. Continue patient on amlodipine 5 mg daily, clonidine 0.1 mg 4 times daily, losartan 100 mg daily, Toprol-XL 150 mg daily. 3. Hyperlipidemia. Continue simvastatin 10 mg oral daily, ezetimibe 10 mg daily. 4. Diabetes mellitus type 2. Continue patient on Rybelsus 7 mg oral daily, Actos 30 mg oral daily, Farxiga 10 mg oral daily. 5. Gastroesophageal reflux disease. 6. Spondylosis of the lumbar spine with myelopathy. Continue gabapentin 100 mg 3 times daily, Flexeril 5 mg twice daily. 7. DVT prophylaxis. Aspirin 81 mg twice daily. Past Medical History Past Medical History: Cancer, Diabetes Mellitus, Hypertension, Osteoarthritis (OA) Additional Past Medical History / Comment(s): uterine cancer, tinnitus History of Any Multi-Drug Resistant Organisms: None Reported Past Surgical History: Appendectomy, Hernia Repair, Hysterectomy, Tonsillectomy Additional Past Surgical History / Comment(s): MAUREEN, BSO, FLAQUITA INGUINAL HERNIA'S, Past Anesthesia/Blood Transfusion Reactions: No Reported Reaction Past Psychological History: No Psychological Hx Reported Smoking Status: Never smoker Past Alcohol Use History: Rare Past Drug Use History: None Reported Additional Drug Use History / Comment(s): cbd oil - Past Family History Mother Family Medical History: Cancer Additional Family Medical History / Comment(s): breast cancer Medications and Allergies Home Medications Medication Instructions Recorded Confirmed Type Dapagliflozin Propanediol [Farxiga] 10 mg PO DAILY 10/15/20 07/27/21 History Ezetimibe [Zetia] 10 mg PO DAILY 10/15/20 07/27/21 History Gabapentin [Neurontin] 100 mg PO TID 10/15/20 07/27/21 History Losartan Potassium 100 mg PO DAILY 10/15/20 07/27/21 History Metoprolol Succinate [Toprol XL] 150 mg PO DAILY 10/15/20 07/27/21 History Pioglitazone HCl 30 mg PO DAILY 10/15/20 07/27/21 History Simvastatin [Zocor] 10 mg PO DAILY 10/15/20 07/27/21 History amLODIPine [Norvasc] 5 mg PO DAILY #30 tab 10/15/20 07/27/21 Rx cloNIDine HCL [Catapres] 0.1 mg PO QID 10/15/20 07/27/21 History Alendronate Sodium 70 mg PO WEEKLY 07/23/21 07/23/21 History Calcium (Unknown Dose) 1 tab PO DAILY 07/23/21 History Cannabidiol (Cbd) [Epidiolex] 1 dose PO HS PRN 07/23/21 07/27/21 History Cyclobenzaprine [Flexeril] 5 mg PO BID 07/23/21 07/27/21 History Mirtazapine 7.5 mg PO HS 07/23/21 07/27/21 History Multivitamins, Thera [Multivitamin 1 tab PO DAILY 07/23/21 07/23/21 History (formulary)] Semaglutide [Rybelsus] 7 mg PO DAILY 07/23/21 07/27/21 History Vitamin D 3 (Unknown Dose) 1 cap PO DAILY 07/23/21 History Zinc (Unknown Dose) 1 tab PO DAILY 07/23/21 History Aspirin [Adult Low Dose Aspirin EC] 81 mg PO BID 30 Days #60 tab 07/27/21 Rx HYDROcodone/APAP 7.5-325MG [[place] 1 - 2 tab PO Q6H PRN #32 tab 07/27/21 Rx 7.5-325] Ondansetron Odt [Zofran Odt] 1 tab PO Q8HR PRN #10 tab 07/27/21 Rx Sennosides [Senokot] 2 tab PO DAILY PRN #60 tablet 07/27/21 Rx Allergies Allergy/AdvReac Type Severity Reaction Status Date / Time sulfamethoxazole Allergy Unknown Verified 07/27/21 13:12 [From Bactrim] trimethoprim [From Bactrim] Allergy Unknown Verified 07/27/21 13:12 NSAIDS (Non-Steroidal AdvReac Unknown PT STATES Verified 07/27/21 13:12 Anti-Inflamma NO NSAIDS FOR KIDNEYS codeine AdvReac Hallucinati Verified 07/27/21 13:12 ons Results CBC & Chem 7: 07/28/21 06:07
== END 2021-07-28 10:33 | disposition home health service (06) ==
LOC: OR 12:34 → 4SSUR 15:53 → OR 07-28 10:33
PROVIDERS: ATTEND Orthopaedic Surgery
DX: M16.12 Unilateral primary osteoarthritis, left hip (principal); M79.7 Fibromyalgia; I12.9 Hypertensive chronic kidney disease with stage 1 through stage 4 chronic kidney disease, or unspecified chronic kidney disease; E11.22 Type 2 diabetes mellitus with diabetic chronic kidney disease; N18.31 Chronic kidney disease, stage 3a; E78.2 Mixed hyperlipidemia; K30 Functional dyspepsia; D51.8 Other vitamin B12 deficiency anemias; Z97.3 Presence of spectacles and contact lenses; K21.00 Gastro-esophageal reflux disease with esophagitis, without bleeding; M47.16 Other spondylosis with myelopathy, lumbar region; Z85.42 Personal history of malignant neoplasm of other parts of uterus; Z90.49 Acquired absence of other specified parts of digestive tract; Z90.710 Acquired absence of both cervix and uterus; Z87.891 Personal history of nicotine dependence; Z83.3 Family history of diabetes mellitus; Z82.49 Family history of ischemic heart disease and other diseases of the circulatory system; Z80.3 Family history of malignant neoplasm of breast; Z79.891 Long term (current) use of opiate analgesic; Z79.84 Long term (current) use of oral hypoglycemic drugs; Z79.899 Other long term (current) drug therapy; Z80.0 Family history of malignant neoplasm of digestive organs; Z88.2 Allergy status to sulfonamides; Z88.8 Allergy status to other drugs, medicaments and biological substances; Z88.6 Allergy status to analgesic agent; Z88.5 Allergy status to narcotic agent
CPT/HCPCS: 94760; 97161; 97535; 97165; 86900; 86901; 85025; 86850; 88300; 73501; 36415; 27130; C1776; J2250; J1100; J0690 ×3; J2405; J3010; J2370; J2704

== ENCOUNTER → 2021-09-07 | Outpatient (CLI) | payer MEDICARE, BC ==
--- NOTE | 2021-09-07 16:02 | XR ---
EXAMINATION TYPE: XR abdomen 2V DATE OF EXAM: 09/07/2021 CLINICAL HISTORY: Lower abdominal pain with nausea vomiting and diarrhea. TECHNIQUE: Supine and upright views of the abdomen are obtained. COMPARISON: None. FINDINGS: Gas is seen in nondistended stomach. Scattered gas is seen in non-distended small bowel lo ops. Gas and fecal material is seen in non-distended colon. There is no visceromegaly, pneumoperito neum, or abnormal calcification appreciated. Underlying dextroconvex scoliosis centered at L3 level. Metallic hardware from left hip arthroplasty is partially imaged. Visualized lung bases are clear. IMPRESSION: Overall nonobstructive bowel gas pattern.
== END | disposition home or self-care (01) ==
LOC: RADXRMAIN 15:40
PROVIDERS: ATTEND Internal Medicine
DX: R10.30 Lower abdominal pain, unspecified (principal); R11.2 Nausea with vomiting, unspecified; R19.7 Diarrhea, unspecified
CPT/HCPCS: 74019

== ENCOUNTER 2022-03-05 20:07 | Emergency (ER) | payer MEDICARE, BC ==
[2022-03-05 20:22] VITALS: RESP 18; TEMP 97.9
[2022-03-05] MEDS ORDERED: ONDANSETRON 4 MG/2 ML VIAL IVP STA (20:39)
[2022-03-05] MEDS ORDERED: SODIUM CHLORIDE 0.9% 1,000 ML IV STA (20:39)
[2022-03-05 21:18] LABS: Basophils # (A) 0.1 k/uL (0-0.2); Basophils % (A) 1 %; Eosinophils # (A) 0.1 k/uL (0-0.7); Eosinophils % (A) 1 %; HCT 44.7 % (34.0-46.0); HGB 15.2 gm/dL (11.4-16.0); Lymphocytes # (A) 0.7 k/uL (1.0-4.8); Lymphocytes % (A) 5 %; MCH 30.7 pg (25.0-35.0); MCV 90.2 fL (80.0-100.0); Mean Platelet Volume 8.9; Monocytes # (A) 0.7 k/uL (0-1.0); Monocytes % (A) 5 %; Neutrophils # (A) 12.1 k/uL (1.3-7.7); Neutrophils % (A) 88 %; Platelet Count 297 k/uL (150-450); RBC 4.96 m/uL (3.80-5.40); RDW 13.9 % (11.5-15.5); WBC 13.7 k/uL (3.8-10.6)
--- NOTE | 2022-03-05 21:19 | XR ---
EXAMINATION TYPE: XR chest 2V DATE OF EXAM: 03/05/2022 COMPARISON: 10/15/2020 HISTORY: Chest pain TECHNIQUE: 2 view FINDINGS: There is no heart failure nor confluent pneumonic infiltrate costophrenic angles are clear. There are no hilar masses. There are chest leads. Bony thorax is intact. IMPRESSION: No active cardiopulmonary disease. No change.
[2022-03-05 21:26] LABS: Albumin 4.9 g/dL (3.5-5.0); Calcium 10.1 mg/dL (8.4-10.2); Potassium 4.1 mmol/L (3.5-5.1); Total Bilirubin 0.9 mg/dL (0.2-1.3); Total Protein 7.9 g/dL (6.3-8.2)
[2022-03-05 21:38] LABS: INR 0.9 (<1.2); Prothrombin Time 10.2 sec (9.0-12.0)
[2022-03-05] MEDS ORDERED: LABETALOL SYRINGE 5 MG/ML IVP STA (22:04)
--- NOTE | 2022-03-05 22:06 | ED ---
General Adult HPI - General Source: patient, family, RN notes reviewed Mode of arrival: wheelchair Limitations: no limitations <Reva Mir - Last Filed: 03/05/22 22:31> - History of Present Illness -: days(s) Radiation: non-radiation Improves with: none Worsens with: none Associated Symptoms: weakness Treatments Prior to Arrival: none <Maykel Rush - Last Filed: 03/06/22 01:14> - General Chief complaint: Nausea/Vomiting/Diarrhea Stated complaint: vomitting Time Seen by Provider: 03/05/22 20:29 - History of Present Illness Initial comments: Patient is a 77-year-old male presenting to the emergency room with complaints of after abdominal pain and chest burning/tightness ongoing for 3 days and the development of vomiting today. She denies any lower abdominal pain, diarrhea or constipation. She reports regular bowel movement earlier today. She reports a low-grade temperature of 99.6 with a baseline temperature of 97 5. She reports intermittent bouts of shaking and feeling her heart racing but she denies any typical chest pain, shortness of breath not related to her abdominal pain, headache, dizziness, orthopnea, lower extremity edema, diaphoresis, or temperatures greater than previously stated T-max. She has a past medical history significant for endometrial cancer, diabetes, hypertension, hyperlipidemia, fibromyalgia, spondyloptosis with myelopathy, and osteoarthritis. (Reva Mir) - Related Data Home Medications Medication Instructions Recorded Confirmed Dapagliflozin Propanediol [Farxiga] 10 mg PO DAILY 10/15/20 07/27/21 Ezetimibe [Zetia] 10 mg PO DAILY 10/15/20 07/27/21 Gabapentin [Neurontin] 100 mg PO TID 10/15/20 07/27/21 Losartan Potassium 100 mg PO DAILY 10/15/20 07/27/21 Metoprolol Succinate [Toprol XL] 150 mg PO DAILY 10/15/20 07/27/21 Pioglitazone HCl 30 mg PO DAILY 10/15/20 07/27/21 Simvastatin [Zocor] 10 mg PO DAILY 10/15/20 07/27/21 cloNIDine HCL [Catapres] 0.1 mg PO QID 10/15/20 07/27/21 Alendronate Sodium 70 mg PO WEEKLY 07/23/21 07/23/21 Calcium (Unknown Dose) 1 tab PO DAILY 07/23/21 Cannabidiol (Cbd) [Epidiolex] 1 dose PO HS PRN 07/23/21 07/27/21 Cyclobenzaprine [Flexeril] 5 mg PO BID 07/23/21 07/27/21 Mirtazapine 7.5 mg PO HS 07/23/21 07/27/21 Multivitamins, Thera [Multivitamin 1 tab PO DAILY 07/23/21 07/23/21 (formulary)] Semaglutide [Rybelsus] 7 mg PO DAILY 07/23/21 07/27/21 Vitamin D 3 (Unknown Dose) 1 cap PO DAILY 07/23/21 Zinc (Unknown Dose) 1 tab PO DAILY 07/23/21 Previous Rx's Medication Instructions Recorded amLODIPine [Norvasc] 5 mg PO DAILY #30 tab 10/15/20 Aspirin [Adult Low Dose Aspirin EC] 81 mg PO BID 30 Days #60 tab 07/27/21 HYDROcodone/APAP 7.5-325MG [[place] 1 - 2 tab PO Q6H PRN #32 tab 07/27/21 7.5-325] Ondansetron Odt [Zofran Odt] 1 tab PO Q8HR PRN #10 tab 07/27/21 Sennosides [Senokot] 2 tab PO DAILY PRN #60 tablet 07/27/21 Allergies Allergy/AdvReac Type Severity Reaction Status Date / Time sulfamethoxazole Allergy Unknown Verified 03/05/22 20:17 [From Bactrim] trimethoprim [From Bactrim] Allergy Unknown Verified 03/05/22 20:17 NSAIDS (Non-Steroidal AdvReac Unknown PT STATES Verified 03/05/22 20:17 Anti-Inflamma NO NSAIDS FOR KIDNEYS codeine AdvReac Hallucinati Verified 03/05/22 20:17 ons Review of Systems ROS Other: All systems not noted in ROS Statement are negative. <Reva Mir - Last Filed: 03/05/22 22:31> ROS Other: All systems not noted in ROS Statement are negative. <Maykel Rush - Last Filed: 03/06/22 01:14> ROS Statement: Those systems with pertinent positive or pertinent negative responses have been documented in the HPI. Past Medical History Past Medical History: Cancer, Diabetes Mellitus, Fibromyalgia, Hypertension, Osteoarthritis (OA) History of Any Multi-Drug Resistant Organisms: None Reported Past Surgical History: Appendectomy, Hernia Repair, Hysterectomy, Joint Replacement, Tonsillectomy Past Psychological History: No Psychological Hx Reported Smoking Status: Never smoker Past Alcohol Use History: Rare Past Drug Use History: None Reported <Reva Mir - Last Filed: 03/05/22 22:31> General Exam Limitations: no limitations General appearance: alert, in no apparent distress Head exam: Present: atraumatic, normocephalic, normal inspection Eye exam: Present: normal appearance, PERRL, EOMI. Absent: scleral icterus, conjunctival injection, periorbital swelling ENT exam: Present: normal exam, mucous membranes moist Neck exam: Present: normal inspection, tenderness, full ROM. Absent: lymphadenopathy Respiratory exam: Present: normal lung sounds bilaterally. Absent: respiratory distress, wheezes, rales, rhonchi, stridor Cardiovascular Exam: Present: tachycardia, irregular rhythm, normal heart sounds. Absent: systolic murmur, diastolic murmur, rubs, gallop, clicks GI/Abdominal exam: Present: soft, tenderness (Mild bilateral upper and epigastric region), normal bowel sounds. Absent: distended, guarding, rebound, rigid, mass Rectal exam: Present: deferred Extremities exam: Present: normal inspection. Absent: pedal edema, joint swelling Back exam: Present: normal inspection Neurological exam: Present: alert, oriented X3, CN II-XII intact Psychiatric exam: Present: normal affect, normal mood Skin exam: Present: warm, dry, intact, normal color. Absent: rash <Reva Mir - Last Filed: 03/05/22 22:31> General appearance: alert, in no apparent distress Head exam: Present: atraumatic, normocephalic, normal inspection Eye exam: Present: normal appearance, PERRL, EOMI. Absent: scleral icterus, conjunctival injection, periorbital swelling ENT exam: Present: normal exam, mucous membranes moist Neck exam: Present: normal inspection. Absent: tenderness, meningismus, lymphadenopathy Respiratory exam: Present: normal lung sounds bilaterally. Absent: respiratory distress, wheezes, rales, rhonchi, stridor Cardiovascular Exam: Present: normal rhythm, tachycardia, normal heart sounds. Absent: systolic murmur, diastolic murmur, rubs, gallop, clicks GI/Abdominal exam: Present: soft, normal bowel sounds. Absent: distended, tenderness, guarding, rebound, rigid Extremities exam: Present: normal inspection, full ROM, normal capillary refill. Absent: tenderness, pedal edema, joint swelling, calf tenderness Back exam: Present: normal inspection Neurological exam: Present: alert, oriented X3, CN II-XII intact Psychiatric exam: Present: normal affect, normal mood Skin exam: Present: warm, dry, intact, normal color. Absent: rash <Maykel Rush - Last Filed: 03/06/22 01:14> Course <Maykel Rush - Last Filed: 03/06/22 01:14> Vital Signs 03/05/22 03/05/22 03/05/22 20:17 21:04 21:39 Temperature 97.9 F Pulse Rate 130 H 131 H 123 H Respiratory 18 18 Rate Blood Pressure 190/78 196/88 O2 Sat by Pulse 98 100 Oximetry 03/05/22 03/05/22 03/06/22 22:32 22:34 00:02 Temperature Pulse Rate 123 H 112 H 108 H Respiratory Rate Blood Pressure 178/83 131/58 156/79 O2 Sat by Pulse Oximetry - Reevaluation(s) Reevaluation #1: 03/06/22 01:13 Record is reviewed (Maykel Rush) Reevaluation #2: 03/06/22 01:13 Patient is able to drink without difficulty (Maykel Rush) Reevaluation #3: 03/06/22 01:13 Patient states she feels improved is okay for discharge home (Maykel Rush) Medical Decision Making - Lab Data Result diagrams: 03/05/22 21:00 03/05/22 21:00 <Reva Mir - Last Filed: 03/05/22 22:31> - Lab Data Result diagrams: 03/05/22 21:00 03/05/22 21:00 - Radiology Data Radiology results: report reviewed (CT head and pelvis negative for acute disease), image reviewed <Maykel Rush - Last Filed: 03/06/22 01:14> - Medical Decision Making 77-year-old male presenting to the emergency room with complaints of upper abdominal pain and chest burning/tightness in the rib region ongoing for 3 days and the development of nausea and vomiting today. She also reports low-gra de temperature of 99.6. Due to age and comorbid conditions will work up for chest pain along with abdominal pain. Will obtain chest x-ray, EKG, CBC, CMP, amylase, lipase, lactic acid, magnesium, coags and urinalysis along with COVID and influenza swabs. We'll defer computed tomography scan until laboratory studies resulted. Will give Zofran for nausea and IV fluid bolus and monitor symptoms. EKG reveals tachycardia with questionable flutter with poor quality of EKG. Will repeat EKG. Tachycardia and hypertension continue despite IV fluids and improvement in nausea. Case discussed with Dr. Rush who advised IV labetalol will give IV labetalol and he ordered dose of morphine along with computed tomography scan of the abdomen pelvis. CBC shows mild leukocytosis. COVID and influenza swabs negative. CMP reveals elevated BUN, creatinine near baseline. Amylase lipase and liver enzymes normal. Alk phos slightly elevated at 131. Awaiting urinalysis. Repeat EKG shows sinus tachycardia possible anterior infarct and inferior infarct; anterior probably old indeterminate age of inferior. Troponin indeterminate at 0.030. Case discussed with and transferred over to Dr. Rush for completion of evaluation and distal. (Reva Mir) 77 females nausea vomiting abdominal pain. Patient feels well and can be discharged home significant dehydration which is improved heart rate which is improved (Maykel Rush) - Lab Data Lab Results 03/05/22 03/05/22 03/05/22 Range/Units 20:53 20:53 21:00 WBC 13.7 H (3.8-10.6) k/uL RBC 4.96 (3.80-5.40) m/uL Hgb 15.2 (11.4-16.0) gm/dL Hct 44.7 (34.0-46.0) % MCV 90.2 (80.0-100.0) fL MCH 30.7 (25.0-35.0) pg MCHC 34.0 (31.0-37.0) g/dL RDW 13.9 (11.5-15.5) % Plt Count 297 (150-450) k/uL MPV 8.9 Neutrophils % 88 % Lymphocytes % 5 % Monocytes % 5 % Eosinophils % 1 % Basophils % 1 % Neutrophils # 12.1 H (1.3-7.7) k/uL Lymphocytes # 0.7 L (1.0-4.8) k/uL Monocytes # 0.7 (0-1.0) k/uL Eosinophils # 0.1 (0-0.7) k/uL Basophils # 0.1 (0-0.2) k/uL PT (9.0-12.0) sec INR (<1.2) APTT (22.0-30.0) sec Sodium (137-145) mmol/L Potassium (3.5-5.1) mmol/L Chloride (98-107) mmol/L Carbon Dioxide (22-30) mmol/L Anion Gap mmol/L BUN (7-17) mg/dL Creatinine (0.52-1.04) mg/dL Est GFR (CKD-EPI)AfAm (>60 ml/min/1.73 sqM) Est GFR (CKD-EPI)NonAf (>60 ml/min/1.73 sqM) Glucose (74-99) mg/dL Calcium (8.4-10.2) mg/dL Magnesium (1.6-2.3) mg/dL Total Bilirubin (0.2-1.3) mg/dL AST (14-36) U/L ALT (4-34) U/L Alkaline Phosphatase (38-126) U/L Troponin I (0.000-0.034) ng/mL Total Protein (6.3-8.2) g/dL Albumin (3.5-5.0) g/dL Lipase (23-300) U/L Urine Color Urine Appearance (Clear) Urine pH (5.0-8.0) Ur Specific [place] (1.001-1.035) Urine Protein (Negative) Urine Glucose (UA) (Negative) Urine Ketones (Negative) Urine Blood (Negative) Urine Nitrite (Negative) Urine Bilirubin (Negative) Urine Urobilinogen (<2.0) mg/dL Ur Leukocyte Esterase (Negative) Urine RBC (0-5) /hpf Urine WBC (0-5) /hpf Urine WBC Clumps (None) /hpf Urine Bacteria (None) /hpf Hyaline Casts (0-2) /lpf Urine Mucus (None) /hpf Urine Yeast (Budding) (None) /hpf Coronavirus (PCR) Not Detected (Not Detectd) Influenza Type A RNA Not Detected (Not Detectd) Influenza Type B (PCR) Not Detected (Not Detectd) 03/05/22 03/05/22 03/05/22 Range/Units 21:00 21:00 21:00 WBC (3.8-10.6) k/uL RBC (3.80-5.40) m/uL Hgb (11.4-16.0) gm/dL Hct (34.0-46.0) % MCV (80.0-100.0) fL MCH (25.0-35.0) pg MCHC (31.0-37.0) g/dL RDW (11.5-15.5) % Plt Count (150-450) k/uL MPV Neutrophils % % Lymphocytes % % Monocytes % % Eosinophils % % Basophils % % Neutrophils # (1.3-7.7) k/uL Lymphocytes # (1.0-4.8) k/uL Monocytes # (0-1.0) k/uL Eosinophils # (0-0.7) k/uL Basophils # (0-0.2) k/uL PT 10.2 (9.0-12.0) sec INR 0.9 (<1.2) APTT 23.0 (22.0-30.0) sec Sodium 139 (137-145) mmol/L Potassium 4.1 (3.5-5.1) mmol/L Chloride 101 (98-107) mmol/L Carbon Dioxide 20 L (22-30) mmol/L Anion Gap 18 mmol/L BUN 31 H (7-17) mg/dL Creatinine 1.61 H (0.52-1.04) mg/dL Est GFR (CKD-EPI)AfAm 35 (>60 ml/min/1.73 sqM) Est GFR (CKD-EPI)NonAf 30 (>60 ml/min/1.73 sqM) Glucose 166 H (74-99) mg/dL Calcium 10.1 (8.4-10.2) mg/dL Magnesium 2.0 (1.6-2.3) mg/dL Total Bilirubin 0.9 (0.2-1.3) mg/dL AST 30 (14-36) U/L ALT 22 (4-34) U/L Alkaline Phosphatase 131 H (38-126) U/L Troponin I 0.030 (0.000-0.034) ng/mL Total Protein 7.9 (6.3-8.2) g/dL Albumin 4.9 (3.5-5.0) g/dL Lipase (23-300) U/L Urine Color Urine Appearance (Clear) Urine pH (5.0-8.0) Ur Specific [place] (1.001-1.035) Urine Protein (Negative) Urine Glucose (UA) (Negative) Urine Ketones (Negative) Urine Blood (Negative) Urine Nitrite (Negative) Urine Bilirubin (Negative) Urine Urobilinogen (<2.0) mg/dL Ur Leukocyte Esterase (Negative) Urine RBC (0-5) /hpf Urine WBC (0-5) /hpf Urine WBC Clumps (None) /hpf Urine Bacteria (None) /hpf Hyaline Casts (0-2) /lpf Urine Mucus (None) /hpf Urine Yeast (Budding) (None) /hpf Coronavirus (PCR) (Not Detectd) Influenza Type A RNA (Not Detectd) Influenza Type B (PCR) (Not Detectd) 03/05/22 03/06/22 Range/Units 21:00 00:02 WBC (3.8-10.6) k/uL RBC (3.80-5.40) m/uL Hgb (11.4-16.0) gm/dL Hct (34.0-46.0) % MCV (80.0-100.0) fL MCH (25.0-35.0) pg MCHC (31.0-37.0) g/dL RDW (11.5-15.5) % Plt Count (150-450) k/uL MPV Neutrophils % % Lymphocytes % % Monocytes % % Eosinophils % % Basophils % % Neutrophils # (1.3-7.7) k/uL Lymphocytes # (1.0-4.8) k/uL Monocytes # (0-1.0) k/uL Eosinophils # (0-0.7) k/uL Basophils # (0-0.2) k/uL PT (9.0-12.0) sec INR (<1.2) APTT (22.0-30.0) sec Sodium (137-145) mmol/L Potassium (3.5-5.1) mmol/L Chloride (98-107) mmol/L Carbon Dioxide (22-30) mmol/L Anion Gap mmol/L BUN (7-17) mg/dL Creatinine (0.52-1.04) mg/dL Est GFR (CKD-EPI)AfAm (>60 ml/min/1.73 sqM) Est GFR (CKD-EPI)NonAf (>60 ml/min/1.73 sqM) Glucose (74-99) mg/dL Calcium (8.4-10.2) mg/dL Magnesium (1.6-2.3) mg/dL Total Bilirubin (0.2-1.3) mg/dL AST (14-36) U/L ALT (4-34) U/L Alkaline Phosphatase (38-126) U/L Troponin I (0.000-0.034) ng/mL Total Protein (6.3-8.2) g/dL Albumin (3.5-5.0) g/dL Lipase 212 (23-300) U/L Urine Color Light Yellow Urine Appearance Cloudy H (Clear) Urine pH 6.0 (5.0-8.0) Ur Specific [place] 1.016 (1.001-1.035) Urine Protein 2+ H (Negative) Urine Glucose (UA) 4+ H (Negative) Urine Ketones 1+ H (Negative) Urine Blood Moderate H (Negative) Urine Nitrite Negative (Negative) Urine Bilirubin Negative (Negative) Urine Urobilinogen <2.0 (<2.0) mg/dL Ur Leukocyte Esterase Moderate H (Negative) Urine RBC 6 H (0-5) /hpf Urine WBC 18 H (0-5) /hpf Urine WBC Clumps Rare H (None) /hpf Urine Bacteria Rare H (None) /hpf Hyaline Casts 5 H (0-2) /lpf Urine Mucus Rare H (None) /hpf Urine Yeast (Budding) Rare H (None) /hpf Coronavirus (PCR) (Not Detectd) Influenza Type A RNA (Not Detectd) Influenza Type B (PCR) (Not Detectd) - EKG Data EKG Comments: First EKG at 2043 reveals atrial flutter with nonspecific T-wave abnormalities with a ventricular rate of 119 bpm, IL interval * ms, QRS duration 70 ms, QT/QTC 331/402 ms, PRT axes *, -3, 61 Second EKG at 2211 shows sinus tachycardia, possible anterior myocardial infarction, probably old, inferior myocardial infarct of indeterminate age Of ventricular rate 117 bpm, IL interval 118 ms, QRS duration 74 ms, QT/QTc 424/493 ms, PRT axes 56, -9, 20 (Reva Mir) Disposition <Reva Mir - Last Filed: 03/05/22 22:31> Is patient prescribed a controlled substance at d/c from ED?: No Time of Disposition: 01:15 <Maykel Rush - Last Filed: 03/06/22 01:14> Clinical Impression: Dehydration, Gastroenteritis Disposition: HOME SELF-CARE Condition: Good Instructions (If sedation given, give patient instructions): Acute Nausea and Vomiting (ED) Referrals: Niyah Shea MD [Primary Care Provider] - 1-2 days
[2022-03-05] MEDS ORDERED: MORPHINE SULFATE 4 MG/ML SYRINGE IVP STA (22:07)
--- NOTE | 2022-03-05 22:42 | CT ---
EXAMINATION TYPE: CT abdomen pelvis wo con DATE OF EXAM: 03/05/2022 COMPARISON: None HISTORY: abd pain CT DLP: 466.6 mGycm Automated exposure control for dose reduction was used. Images obtained of the diaphragm to the floor the pelvis with no contrast. Lung bases show some patchy atelectasis. Heart size is normal. No pericardial effusion. No pleural ef fusion. Liver and spleen are intact. Stomach has normal size. There is a question of some mild thickening of the gastric antrum wall. There is minimal fat stranding of the fat anterior to the gastric antrum. Th ere is no evidence of pancreatic mass. Gallbladder appears normal. The bile ducts are not dilated. There is no adrenal mass. Kidneys have normal size and contour. No hydronephrosis. There is 3 mm calc ulus lower pole left kidney. No retroperitoneal adenopathy. There is small amount of air in the urina ry bladder anteriorly. There is left hip prosthesis. No pelvic mass. No free fluid in the pelvis. The re is hysterectomy. Appendix not clearly seen. No sign of thickened appendix. There is no mesenteric edema. No ascites or free air. No bowel obstruction. \ The lumbar vertebrae have normal alignment. No compression fracture. There is vacuum disc at L5-S1. T he bony pelvis is intact. IMPRESSION: There is a small air bubble in the urinary bladder of uncertain significance. This could relate to ca theterization or cystitis. Nonobstructing left renal calculus. No renal obstruction. There is some epigastric omental fat or lesser sac fat with fat stranding anterior to the gastric ant rum. Clinical significance is not clear. No hernia seen. This could relate to some antral gastritis. Gastric antrum could also be just underdistended.
[2022-03-06 00:53] LABS: Appearance,Urine Cloudy (Clear); Bacteria,Urine Rare /hpf; Bilirubin,Urine Negative (Negative); Blood,Urine Moderate (Negative); Budding Yeast,Urine Rare /hpf; Color,Urine Light Yellow; Glucose,Urine (UA) 4+ (Negative); Hyaline Casts,Urine 5 /lpf (0-2); Ketones,Urine 1+ (Negative); Leukocyte Esterase,Urine Moderate (Negative); Mucus,Urine Rare /hpf; Nitrite,Urine Negative (Negative); Protein,Urine 2+ (Negative); RBC,Urine 6 /hpf (0-5); Specific Gravity,Urine 1.016 (1.001-1.035); Urobilinogen,Urine <2.0 mg/dL (<2.0); WBC,Urine 18 /hpf (0-5)
[2022-03-06] MEDS ORDERED: ONDANSETRON 4 MG ODT STARTER PACK 2 TAB BTL PO STA (01:12)
[2022-03-06 01:53] VITALS: BP 165/80; PULSE 109
== END 2022-03-06 01:52 | disposition home or self-care (01) ==
LOC: EC 20:07
DX: E86.0 Dehydration (principal); K52.9 Noninfective gastroenteritis and colitis, unspecified; E11.9 Type 2 diabetes mellitus without complications; I10 Essential (primary) hypertension; M19.90 Unspecified osteoarthritis, unspecified site; Z79.84 Long term (current) use of oral hypoglycemic drugs; Z79.811 Long term (current) use of aromatase inhibitors; Z79.891 Long term (current) use of opiate analgesic; Z79.4 Long term (current) use of insulin; Z79.83 Long term (current) use of bisphosphonates; Z79.899 Other long term (current) drug therapy; Z88.2 Allergy status to sulfonamides; Z88.6 Allergy status to analgesic agent; Z88.5 Allergy status to narcotic agent
CPT/HCPCS: 93005; 80053; 83735; 84484; 85025; 85610; 85730; 87502; 87635; 71046; 74176; 99284; 96374; 96375 ×2; 96361; J2270; J2405; 36415; 81001; 83690; 87086

== ENCOUNTER → 2022-03-15 | Outpatient (CLI) | payer MEDICARE, BC ==
--- NOTE | 2022-03-15 13:00 | US ---
EXAMINATION TYPE: US abdomen complete DATE OF EXAM: 03/15/2022 COMPARISON: NONE CLINICAL HISTORY: R10.13 EPIGASTRIC PAIN. epigastric pain TECHNIQUE: Multiple sonographic images of the abdomen are obtained. FINDINGS: EXAM MEASUREMENTS: Liver Length: 11.9 cm Gallbladder Wall: 0.2 cm CBD: 0.4 cm Spleen: 6.3 cm Right Kidney: 9.0 x 3.5 x 4.2 cm Left Kidney: 8.4 x 4.1 x 3.7 cm HAM MARKER NOTES: *technical limitations due to large amount of overlying bowel content Pancreas: Obscured by bowel gas Liver: appears wnl Gallbladder: no evidence of stones Evidence for sonographic Stanley's sign: no CBD: wnl Spleen: wnl Right Kidney: no evidence of hydronephrosis Left Kidney: atrophic, no evidence of hydronephrosis Upper IVC: wnl Abd Aorta: wnl IMPRESSION: 1. No ultrasound abnormality of the abdomen. 2. Some limitation due to bowel gas
== END | disposition home or self-care (01) ==
LOC: RADUSWWP 08:11
PROVIDERS: ATTEND Internal Medicine
DX: R10.13 Epigastric pain (principal); R14.3 Flatulence
CPT/HCPCS: 76700

== ENCOUNTER → 2022-04-04 | Outpatient (CLI) | payer MEDICARE, BC ==
--- NOTE | 2022-04-04 15:44 | NM ---
EXAMINATION TYPE: NM hepatobiliary w EF DATE OF EXAM: 04/04/2022 COMPARISON: Ultrasound abdomen 20 days ago HISTORY: GERD with esophagitis. Diminished appetite with heartburn and reflux. TECHNIQUE: After the intravenous administration of 4.4 mCi Tc 99m Mebrofenin hepatobiliary scintigrap hy is performed. Immediate images post injection. FINDINGS: There is satisfactory initial accumulation of tracer by the liver. The gallbladder is visualized wit hin 10 minutes. The small bowel activity is noted within 15 minutes. At one hour 8 ounces of oral e nsure plus is given to mimic CCK and gallbladder ejection fraction is calculated at less than 2 %, di minished from the normal range. Therefore there is no scintigraphic evidence of cystic or common sea e duct obstruction to suggest acute cholecystitis. IMPRESSION: Diminished ejection fraction consistent with underlying gallbladder hypokinesia.
== END | disposition home or self-care (01) ==
LOC: RADNMMAIN 12:47
PROVIDERS: ATTEND Internal Medicine
DX: K21.00 Gastro-esophageal reflux disease with esophagitis, without bleeding (principal)
CPT/HCPCS: 78226; A9537

== ENCOUNTER → 2022-08-02 | Outpatient (CLI) | payer MEDICARE, BC ==
--- NOTE | 2022-08-02 13:52 | CT ---
EXAMINATION TYPE: CT hip LT wo con DATE OF EXAM: 08/02/2022 COMPARISON: none HISTORY: left hip pain, no prior hx replacement 1 years ago Automated exposure control for dose reduction was used. Unenhanced CT of the left hip was performed i n the axial, coronal and sagittal planes with bone and soft tissue window settings submitted. FINDINGS: Total left hip arthroplasty noted to be in place with acetabular and femoral components appearing wel l seated. I do not see evidence for periprosthetic lucency. There is no evidence of fracture. No intr aosseous lesion. No soft tissue masses seen. Streak artifact does limit evaluation. No evidence for p elvic mass. Vacuum disc lower lumbar spine. IMPRESSION: POSTOPERATIVE CHANGES OF TOTAL LEFT HIP ARTHROPLASTY NOTED ABOVE WITHOUT SIGNIFICANT ABNORMALITY A PPRECIATED AT THIS TIME.
== END | disposition home or self-care (01) ==
LOC: RADCTMAIN 12:47
PROVIDERS: ATTEND Orthopaedic Surgery
DX: M25.552 Pain in left hip (principal); I10 Essential (primary) hypertension; Z96.642 Presence of left artificial hip joint; Z09 Encounter for follow-up examination after completed treatment for conditions other than malignant neoplasm

== ENCOUNTER → 2022-10-28 | Outpatient (CLI) | payer MEDICARE, BC ==
--- NOTE | 2022-10-28 15:03 | US ---
EXAMINATION TYPE: US carotid duplex BILAT DATE OF EXAM: 10/28/2022 COMPARISON: NONE CLINICAL INDICATION: Female, 77 years old with history of Z12.31 Screening mammogram; M85.851; TECHNIQUE: Carotid duplex ultrasound examination. Indirect Doppler criteria was utilized. FINDINGS: EXAM MEASUREMENTS: RIGHT: Peak Systolic Velocity (PSV) cm/sec ----- Right CCA: 57.1 ----- Right ICA: 92.2 ----- Right ECA: 92.2 ICA/CCA ratio: 1.6 RIGHT: End Diastole cm/sec ----- Right CCA: 6.2 ----- Right ICA: 19.2 ----- Right ECA: 0.0 LEFT: Peak Systolic Velocity (PSV) cm/sec ----- Left CCA: 70.4 ----- Left ICA: 82.2 ----- Left ECA: 91.9 ICA/CCA ratio: 1.2 LEFT: End Diastole cm/sec ----- Left CCA: 5.4 ----- Left ICA: 18.8 ----- Left ECA: 0.0 VERTEBRALS (direction of flow): Right Vertebral: Antegrade Left Vertebral: Antegrade Rhythm: Normal FORESTRY CONSULTANT NOTES: No significant stenosis seen. No elevated velocities. Moderate plaque noted bilate rally, left greater than right. IMPRESSION: No evidence for hemodynamically significant stenosis. Criteria for Assigning % of Stenosis / Diameter reduction (Estimation based on the indirect measurements of the internal carotid artery velocities (ICA PSV). 1. Normal (no stenosis)=ICA PSV < 125 cm/s: ratio < 2.0: ICA EDV<40 cm/s. 2. Less than 50% stenosis=ICA PSV < 125 cm/s: ratio < 2.0: ICA EDV<40 cm/s. 3. 50 to 69% stenosis=ICA PSV of 125 to 230 cm/s: ration 2.0 ? 4.0: ICA EDV 40-100 cm/s. 4. Greater than 70% stenosis to near occlusion= ICA PSV > 230 cm/s: ratio > 4.0: ICA EDV > 100 cm/s. 5. Near occlusion= ICA PSV velocities may be low or undetectable: variable ratio and ICA EDV. 6. Total occlusion=unable to detect flow.
--- NOTE | 2022-10-28 15:13 | BD ---
EXAMINATION TYPE: Axial Bone Density DATE OF EXAM: 10/28/2022 CLINICAL HISTORY: 77 years old Female. ICD-10 CODE: Z12.31 Screening mammogram; M85.851 Height: 59.7 in Weight: 147 lbs FRAX RISK QUESTIONS: History of Fracture in Adulthood: rt leg age 47 Secondary Osteoporosis: 3. Menopause before 45: total hysterectomy age 48 RISK FACTORS HISTORY OF: Surgery to Hip(left): age 75 Active: limited Postmenopausal woman: total hysterectomy age 48 Take estrogen and/or progesterone medications: not now How long: approximately 2 years Lost more than 2 inches in height since high school: yes 3" MEDICATIONS: Osteoporosis Medications: yes Which medication: Actonel How Lon years Additional Medications: clonidine, gabapentin, losartan, diabetes meds, metoprolol, simvastatin, amlo dipine, alendronate, cyclobenzaprine, EXAM MEASUREMENTS: Bone mineral densitometry was performed using the [employer] System. Bone mineral density as measured about the Lumbar spine is: ----- L1-L4(G/cm2): 1.011 T Score Values are as follows: ----- L1: -1.9 ----- L2: -1.7 ----- L3: -0.7 ----- L4: -1.4 ----- L1-L4: -1.4 Z Score Values are as follows: ----- L1: -0.2 ----- L2: 0.1 ----- L3: 1.1 ----- L4: 0.3 ----- L1-L4: 0.4 Bone mineral density has: Decreased -1.1% since study of: 10/27/2020 Bone mineral density about the R hip (g/cm2): 0.816 T Score values are as follows: -----R Neck: -1.9 -----R Total: -1.5 Z Score values are as follows: -----R Neck: 0.2 -----R Total: -0.4 Bone mineral density has: Decreased -0.6% since study of: 10/27/2020 FRAX%s: The graph provided illustrates a 21.8% chance for a major osteoporotic fx and a 5.6% chance f or the hips probability for fx in 10 years time. IMPRESSION: Osteopenia (T Score between -2.5 and -1). There is slightly increased risk of fracture and the patient may be considered for treatment. Re-Screen 2-5 years. NOTE: T-SCORE=SD OF THE YOUNG ADULT MEAN.
--- NOTE | 2022-10-31 06:28 | MM ---
Reason for Exam: Screening (asymptomatic). Last mammogram was performed 2 year(s) and 0 month(s) ago. Patient History: Menarche at age 10. First Full-Term at age 21. Left ovary removed at age 60. Right ovary removed at age 60. Hysterectomy at age 60. Postmenopausal. Endometrial cancer, age 60. Hormonal Contraceptives, starting at age 18 for 2 years. Mother had breast cancer, age 50. Risk Values: Rochelle 5 year model risk: 3.2%. NCI Lifetime model risk: 5.4%. Prior Study Comparison: 08/31/2012 Bilateral Screening Mammogram, [facility]. 03/12/2015 Bilateral Diagnostic Mammogram, [facility]. 10/27/2020 Bilateral Screening Mammogram, [facility]. Tissue Density: The breast tissue is heterogeneously dense. This may lower the sensitivity of mammography. Findings: Analyzed By CAD. There is no suspicious group of microcalcifications or new suspicious mass in either breast. Benign-appearing calcifications within both breasts. Overall Assessment: Benign, BI-RAD 2 Management: Screening Mammogram of both breasts in 1 year. A clinical breast exam by your physician is recommended on an annual basis and results should be correlated with mammographic findings. Note on Rochelle scores and lifetime risk: 1. A Rochelle score greater than 3% is considered moderate risk. If this is the case, consider specialist referral to assess eligibility for a risk reducing agent. If overall lifetime risk for the development of breast cancer is 20% or higher, the patient may qualify for future screening with alternating mammogram and breast MRI. Electronically signed and approved by: Ej Larkin D.O.
== END | disposition home or self-care (01) ==
LOC: RADBDWWP 12:39
PROVIDERS: ATTEND Internal Medicine
DX: Z12.31 Encounter for screening mammogram for malignant neoplasm of breast (principal); M85.89 Other specified disorders of bone density and structure, multiple sites; Z78.0 Asymptomatic menopausal state
CPT/HCPCS: 77063; 77067; 77080; 93880

== ENCOUNTER → 2023-11-13 | Outpatient (CLI) | payer MEDICARE, BC ==
--- NOTE | 2023-11-13 17:17 | US ---
EXAMINATION TYPE: US kidneys/renal and bladder DATE OF EXAM: 11/13/2023 COMPARISON: 2021 CLINICAL INDICATION: Female, 78 years old with history of N18.31 CHRONIC KIDNEY DISEASE, STAGE 3A;; EXAM MEASUREMENTS: Right Kidney: 8.7 x 3.9 x 3.2 cm Left Kidney: 8.2 x 4.0 x 3.8 cm Post Void Residual Volume: 16.7 mL Right Kidney: No hydronephrosis or masses seen Left Kidney: No hydronephrosis or masses seen Bladder: wnl Bilateral Jets seen: Yes Normal Post Void Residual: Yes There is no evidence for hydronephrosis at this point in time. No nephrolithiasis is seen. No molly s are identified. The urinary bladder is anechoic. Bilateral ureteral jets are seen. Post void urinary bladder volume is normal at 16.7 mL. Prevoid volume was 463.6 mL. IMPRESSION: No acute retroperitoneal abnormality. 2. No urinary retention
== END | disposition home or self-care (01) ==
LOC: RADUSWWP 15:29
PROVIDERS: ATTEND Internal Medicine
DX: Z12.31 Encounter for screening mammogram for malignant neoplasm of breast (principal); N18.31 Chronic kidney disease, stage 3a
CPT/HCPCS: 76770; 77063; 77067

== ENCOUNTER → 2024-08-16 | Outpatient (CLI) | payer MEDICARE, BC ==
--- NOTE | 2024-08-16 13:22 | XR ---
EXAMINATION TYPE: XR abdomen 2V DATE OF EXAM: 08/16/2024 12:43 PM COMPARISON: 09/07/2021. CLINICAL INDICATION: Female, 79 years old with history of K59.01 Constipation; TECHNIQUE: Two views of the abdomen were obtained. FINDINGS: Large amount stool throughout the colon. The bowel gas pattern is nonspecific without dila sandy loops of small or large bowel. . Fecal material and gas are demonstrated throughout the colon and rectum. There is no evidence for organomegaly or pneumoperitoneum. No acute osseous process. No abnormal calcifications are present. Scoliosis changes. Left hip arthroplasty appears intact. IMPRESSION: Large amount stool throughout the colon. [facility], , 08/16/2024 1:20 PM
== END | disposition home or self-care (01) ==
LOC: RADXRMAIN 12:20
PROVIDERS: ATTEND Internal Medicine
DX: K59.01 Slow transit constipation (principal); R19.5 Other fecal abnormalities
CPT/HCPCS: 74019

== ENCOUNTER → 2024-11-21 | Outpatient (CLI) | payer MEDICARE, BC ==
--- NOTE | 2024-11-21 08:39 | US ---
EXAMINATION TYPE: US carotid duplex BILAT DATE OF EXAM: 11/21/2024 COMPARISON: US 10/28/22 CLINICAL INDICATION: Female, 79 years old with history of I65.23 CAROTID STENOSIS; Stenosis per order . Type 2 diabetes. Hx hypertension, hyperlipidemia. Dizziness and weakness TECHNIQUE: Grayscale, color Doppler and spectral Doppler evaluation of the bilateral carotid systems and vertebral arteries. Indirect Doppler criteria was utilized. FINDINGS: EXAM MEASUREMENTS: RIGHT: Peak Systolic Velocity (PSV) cm/sec ----- Right CCA: 79.0 ----- Right ICA: 117.3 ----- Right ECA: 123.7 ICA/CCA ratio: 1.5 RIGHT: End Diastole cm/sec ----- Right CCA: 0.0 ----- Right ICA: 24.1 ----- Right ECA: 0.0 LEFT: Peak Systolic Velocity (PSV) cm/sec ----- Left CCA: 103.9 ----- Left ICA: 117.2 ----- Left ECA: 121.0 ICA/CCA ratio: 1.1 LEFT: End Diastole cm/sec ----- Left CCA: 12.7 ----- Left ICA: 18.0 ----- Left ECA: 0.0 VERTEBRALS (direction of flow): Right Vertebral: Antegrade Left Vertebral: Antegrade Rhythm: Normal FISHER HAND LINE NOTES: Plaque seen in bilateral bulbs and in left CCA. Color Doppler imaging shows patency with blood flow throughout the carotid artery. IMPRESSION: No hemodynamically significant internal carotid artery stenosis on either side. Criteria for Assigning % of Stenosis / Diameter reduction (Estimation based on the indirect measurements of the internal carotid artery velocities (ICA PSV). 1. Normal (no stenosis)=ICA PSV < 180 cm/s: ratio < 2.0: ICA EDV<40 cm/s. 2. Less than 50% stenosis=ICA PSV < 180 cm/s: ratio < 2.0: ICA EDV<40 cm/s. 3. 50 to 69% stenosis=ICA PSV of 180 to 230 cm/s: ration 2.0 ? 4.0: ICA EDV 40-100 cm/s. PSV 125-180 cm/sec and ICA/CCA PSV Ratio ? 2.0 is also consistent with 50-69% stenosis 4. Greater than 70% stenosis to near occlusion= ICA PSV > 230 cm/s: ratio > 4.0: ICA EDV > 100 cm/s. 5. Near occlusion= ICA PSV velocities may be low or undetectable: variable ratio and ICA EDV. 6. Total occlusion=unable to detect flow. [facility], Workstation: [facility], 11/21/2024 8:36 AM
--- NOTE | 2024-11-21 09:03 | MM ---
Reason for Exam: Screening (asymptomatic). Last screening mammogram was performed 12 month(s) ago. Patient History: Menarche at age 10. First Full-Term at age 21. Left ovary removed at age 60. Right ovary removed at age 60. Hysterectomy at age 60. Postmenopausal. Endometrial cancer, age 60. Hormonal Contraceptives, starting at age 18 for 2 years. Mother had breast cancer, age 50. Risk Values: Rochelle 5 year model risk: 3.1%. NCI Lifetime model risk: 4.4%. Prior Study Comparison: 10/27/2020 Bilateral Screening Mammogram, [facility]. 10/28/2022 Bilateral MG 3D screening mammo w/cad, [facility]. 11/13/2023 Bilateral MG 3D screening mammo w/cad, [facility]. Tissue Density: The breasts are heterogeneously dense, which may obscure small masses. Findings: Analyzed By CAD. There is a nodular density within the inner margin right breast measuring 9 mm and 5.7 cm from the nipple line. Benign-appearing calcifications. Overall Assessment: Incomplete: need additional imaging evaluation, BI-RAD 0 Management: Special View Mammogram of the right breast. . Patient should continue monthly self-breast exams. A clinical breast exam by your physician is recommended on an annual basis. This exam should not preclude additional follow-up of suspicious palpable abnormalities. Note on Rochelle scores and lifetime risk: 1. A Rochelle score greater than 3% is considered moderate risk. If this is the case, consider specialist referral to assess eligibility for a risk reducing agent. 2. If overall lifetime risk for the development of breast cancer is 20% or higher, the patient may qualify for future screening with alternating mammogram and breast MRI. [facility], , 11/21/2024 9:00 AM. Electronically signed and approved by: Brayan Myers M.D. Radiologis
--- NOTE | 2024-11-21 11:19 | BD ---
EXAMINATION TYPE: Axial Bone Density DATE OF EXAM: 11/21/2024 CLINICAL HISTORY: 79 years old Female. ICD-10 CODE: M85.88 DISRD BONE DENSE , Additional History: Height: 60" Weight: 134lbs FRAX RISK QUESTIONS: Alcohol (3 or more units per day): No Family History (Parent hip fracture): No Glucocorticoids (More than 3mos): No (Ex: prednisone, prednisolone, methylprednisolone, dexamethasone, and hydrocortisone). History of Fracture in Adulthood: patient unsure, prev report indicated rt leg at age 47 Secondary Osteoporosis: No 1. Type 1 Diabetes: No 2. Hyperthyroidism: No 3. Menopause before 45: No 4. Malnutrition: No 5. Chronic liver disease: No Rheumatoid Arthritis: No Current Tobacco Use: No RISK FACTORS HISTORY OF: Hip Fracture (Right/Left): No Spine Fracture: No History of Wrist Fracture: No Surgery to Spine/Hip(right/left)/Wrist (right/left): Left hip replacement at age 75 MEDICATIONS: Thyroid Medications: No Osteoporosis Medications: No EXAM MEASUREMENTS: Bone mineral densitometry was performed using the [employer] System. Bone mineral density as measured about the Lumbar spine is: ----- L1-L4(G/cm2): 1.072 T Score Values are as follows: ----- L1: -1.2 ----- L2: -1.0 ----- L3: -0.3 ----- L4: -1.2 ----- L1-L4: -0.9 Z Score Values are as follows: ----- L1: 0.6 ----- L2: 0.8 ----- L3: 1.5 ----- L4: 0.6 ----- L1-L4: 0.9 Bone mineral density has: increased 6.1% since study of: 10/28/2022 Bone mineral density about the R hip (g/cm2): 0.913 T Score values are as follows: -----R Neck: -0.8 -----R Total: -0.7 Z Score values are as follows: -----R Neck: 1.4 -----R Total: 1.3 Bone mineral density has: increased 11.9% since study of: 10/28/2022 FRAX%s: The graph provided illustrates a 15.7% chance for a major osteoporotic fx and a 2.7% chance f or the hips probability for fx in 10 years time. IMPRESSION: Osteopenia (T Score between -2.5 and -1). There is slightly increased risk of fracture and the patient may be considered for treatment. Re-Screen 2-5 years. NOTE: T-SCORE=SD OF THE YOUNG ADULT MEAN. [facility], , 11/21/2024 11:16 AM
== END | disposition home or self-care (01) ==
LOC: RADUSWWP 07:53
PROVIDERS: ATTEND Internal Medicine
DX: Z12.31 Encounter for screening mammogram for malignant neoplasm of breast (principal); R92.333 Mammographic heterogeneous density, bilateral breasts; I65.23 Occlusion and stenosis of bilateral carotid arteries; M85.88 Other specified disorders of bone density and structure, other site; I34.0 Nonrheumatic mitral (valve) insufficiency; Z78.0 Asymptomatic menopausal state; E11.9 Type 2 diabetes mellitus without complications; M85.89 Other specified disorders of bone density and structure, multiple sites; I10 Essential (primary) hypertension; Z80.3 Family history of malignant neoplasm of breast; Z92.0 Personal history of contraception; E78.5 Hyperlipidemia, unspecified
CPT/HCPCS: 77063; 77067; 77080; 93880

== ENCOUNTER → 2024-11-26 | Outpatient (CLI) | payer MEDICARE, BC ==
--- NOTE | 2024-11-26 13:18 | MM ---
Reason for Exam: Additional evaluation requested from abnormal screening. Last screening mammogram was performed less than 1 month ago. Patient History: Menarche at age 10. First Full-Term at age 21. Left ovary removed at age 60. Right ovary removed at age 60. Hysterectomy at age 60. Postmenopausal. Endometrial cancer, age 60. Hormonal Contraceptives, starting at age 18 for 2 years. Mother had breast cancer, age 50. Risk Values: Rochelle 5 year model risk: 3.1%. NCI Lifetime model risk: 4.4%. Prior Study Comparison: 10/27/2020 Bilateral Screening Mammogram, [facility]. 10/28/2022 Bilateral MG 3D screening mammo w/cad, [facility]. 11/13/2023 Bilateral MG 3D screening mammo w/cad, [facility]. 11/21/2024 Bilateral MG 3D screening mammo w/cad, [facility]. Tissue Density: Right: The breasts are heterogeneously dense, which may obscure small masses. Findings: Analyzed By CAD. No new suspicious masses, calcifications or distortions. Multiple nodular asymmetries are seen in the right breast medial inferior aspect from 3-6 o'clock measuring up to 8 mm. Some calcifications are seen within the largest. Overall Assessment: Incomplete: need additional imaging evaluation, BI-RAD 0 Management: Diagnostic Breast Ultrasound of the right breast. Results were given to the patient verbally at the time of exam. Patient should continue monthly self-breast exams. A clinical breast exam by your physician is recommended on an annual basis. This exam should not preclude additional follow-up of suspicious palpable abnormalities. Note on Rochelle scores and lifetime risk: 1. A Rochelle score greater than 3% is considered moderate risk. If this is the case, consider specialist referral to assess eligibility for a risk reducing agent. 2. If overall lifetime risk for the development of breast cancer is 20% or higher, the patient may qualify for future screening with alternating mammogram and breast MRI. [facility], , 11/26/2024 1:14 PM. Electronically signed and approved by: Mitch Rojas DO
--- NOTE | 2024-11-26 13:21 | USB ---
Reason for Exam: Additional evaluation requested from abnormal screening. Patient History: Menarche at age 10. First Full-Term at age 21. Left ovary removed at age 60. Right ovary removed at age 60. Hysterectomy at age 60. Postmenopausal. Endometrial cancer, age 60. Hormonal Contraceptives, starting at age 18 for 2 years. Mother had breast cancer, age 50. Risk Values: Rochelle 5 year model risk: 3.1%. NCI Lifetime model risk: 4.4%. Technique: Method: Targeted. Prior Study Comparison: 10/28/2022 Bilateral MG 3D screening mammo w/cad, [facility]. 11/13/2023 Bilateral MG 3D screening mammo w/cad, [facility]. 11/21/2024 Bilateral MG 3D screening mammo w/cad, [facility]. Findings: The lower outer quadrant of the right breast, the axilla of the right breast and the retroareolar of the right breast were scanned. Technique utilized:US breast workup limited RT Image; Ultrasound imaging of: All 4 quadrants, the retroareolar region and axilla. Multiple asymmetries on mammography correlate with cysts with posterior acoustic enhancement. One of which has more irregular shaped at 5:00 6 cm from nipple measuring up to 7 mm. Short-term follow-up in 6 months recommended. Overall Assessment: Probably benign, BI-RAD 3 Management: Diagnostic Breast Ultrasound of the right breast in 6 months. A clinical breast exam by your physician is recommended on an annual basis and results should be correlated with mammographic findings. This exam should not preclude additional follow-up of suspicious palpable abnormalities. Results were given to the patient verbally at the time of exam. [facility], , 11/26/2024 1:17 PM. Electronically signed and approved by: Mitch Rojas DO
== END | disposition home or self-care (01) ==
LOC: RADMAMWWP 11:58
PROVIDERS: ATTEND Internal Medicine
DX: R92.8 Other abnormal and inconclusive findings on diagnostic imaging of breast (principal); R92.331 Mammographic heterogeneous density, right breast; Z78.0 Asymptomatic menopausal state; Z80.3 Family history of malignant neoplasm of breast; Z92.0 Personal history of contraception
CPT/HCPCS: 77065; 76642; G0279; 77061